=== PATIENT | male | born 1975 | race Caucasian/White ===

== ENCOUNTER 2016-03-16 10:43 | Inpatient (IN) | payer MEDICAID, OTHER ==
[~2016-03-16] VITALS: Ht 188 cm; Wt 98.7 kg
[~2016-03-16 10:43] MED LIST: BENZ2TAB10 PO; HALO10 PO; VITAD1000 PO
[2016-03-16 11:19] LABS: BASOPHILS % (AUTO) 0.3 % (0.0-2.0); EOSINOPHILS % (AUTO) 1.3 % (1.0-6.0); HEMATOCRIT 43.5 % (41-53); HEMOGLOBIN 14.4 g/dL (13.5-17.5); MEAN CORPUSCULAR HEMOGLOBIN 31.4 pg (26.0-34.0); MEAN CORPUSCULAR HGB CONC 33.1 G/dL (31.0-37.0); MEAN CORPUSCULAR VOLUME 95 fL (80-100); MONOCYTES # (AUTO) 0.5 K/uL (0.1-1.0); MONOCYTES % (AUTO) 7.6 % (2.0-9.0); NEUTROPHILS # (AUTO) 5.1 K/uL (1.8-7.7); NEUTROPHILS % (AUTO) 75.8 % (40.0-70.0); PLATELET COUNT (AUTO) 292 K/uL (150-450); RED BLOOD CELL COUNT(AUTO) 4.59 MIL/uL (4.50-5.90); RED CELL DISTRIBUTION WIDTH 15.5 % (11.5-14.5); WHITE BLOOD COUNT (AUTO) 6.7 K/uL (4.5-11.0)
[2016-03-16 11:28] LABS: ANION GAP 13 mmol/L (8-16); CARBON DIOXIDE 23 mmol/L (22-29); CHLORIDE 102 mmol/L (98-107); CREATININE 1.07 mg/dL (0.60-1.30); GLOMERULAR FILTR. RATE CALC > 60 mL/min (>60); POTASSIUM 3.6 mmol/L (3.5-5.1); SODIUM SERUM 138 mmol/L (136-145); UREA NITROGEN, BLOOD 13 mg/dL (7-18)
[2016-03-16 11:32] LABS: ALANINE AMINOTRANSFERASE 82 U/L (12-78); ALBUMIN 3.6 g/dL (3.4-5.0); ASPARTATE AMINOTRANSFERASE 89 U/L (15-37); BILIRUBIN,TOTAL 0.4 mg/dL (0.1-1.0); TOTAL PROTEIN, SERUM 6.8 g/dL (6.4-8.2)
[2016-03-16] MEDS: LORazepam 1 MG TABLET PO ONE ×2 (12:05→12:14)
[2016-03-16] MEDS: DiphenhydrAMINE HCL 25 MG/10 ML ELIXIR UDCUP PO ONE ×2 (12:05→12:14)
[2016-03-16] MEDS: HALOPERIDOL 5 MG TABLET PO ONE ×2 (12:05→12:14)
[2016-03-16 14:40] VITALS: BP 122/79
[2016-03-16] MEDS ORDERED: INFLUENZA VIRUS VACCINE QVS 2016-17 (3YR+)/PF 60 MCG/0.5 ML SYRINGE IM ONE (15:15)
[2016-03-16 16:00] VITALS: BP 127/72
[2016-03-16] MEDS: LORazepam 2 MG TABLET PO PRN (20:04)
[2016-03-16] MEDS: BENZTROPINE MESYLATE 2 MG TABLET PO SCH (20:04)
[2016-03-16] MEDS: HALOPERIDOL 10 MG TABLET PO SCH (20:04)
[2016-03-17 06:39] VITALS: BP 121/85
[2016-03-17 08:04] VITALS: BP 150/74
[2016-03-17] MEDS ORDERED: LOPERAMIDE HCL 2 MG CAPSULE PO PRN (11:00)
[2016-03-17] MEDS ORDERED: CloNIDine HCL 0.1 MG TABLET PO PRN (11:00)
[2016-03-17] MEDS ORDERED: MAG HYDROX/AL HYDROX/SIMETH ES 30 ML SUSPENSION UDCUP PO PRN (11:00)
[2016-03-17] MEDS ORDERED: ALBUTEROL SULFATE HFA 90 MCG/PUFF 8 GM INHALER IH PRN (11:00)
[2016-03-17] MEDS ORDERED: PETROLATUM,WHITE 71 GM JELLY TP PRN (11:00)
[2016-03-17] MEDS ORDERED: MAGNESIUM HYDROXIDE SUSPENSION 30 ML UDCUP PO PRN (11:00)
[2016-03-17] MEDS ORDERED: ONDANSETRON HCL 4 MG TABLET PO PRN (11:00)
[2016-03-17] MEDS ORDERED: BENZOCAINE/MENTHOL LOZENGE MM PRN (11:00)
[2016-03-17] MEDS ORDERED: ACETAMINOPHEN 325 MG TABLET PO PRN (11:00)
[2016-03-17] MEDS ORDERED: BACITRACIN 28.4 GM OINTMENT TP PRN (11:00)
[2016-03-17 16:00] VITALS: BP 106/60
[2016-03-17] MEDS: BENZTROPINE MESYLATE 2 MG TABLET PO SCH (20:15)
[2016-03-17] MEDS: HALOPERIDOL 10 MG TABLET PO SCH (20:15)
[2016-03-18 08:30] VITALS: BP 121/67
[2016-03-18] MEDS: CHOLECALCIFEROL (VIT D3) 1,000 UNITS TABLET PO SCH (09:31)
[2016-03-18 16:10] VITALS: BP 117/72
[2016-03-18] MEDS: HALOPERIDOL 10 MG TABLET PO SCH (20:08)
[2016-03-18] MEDS: BENZTROPINE MESYLATE 2 MG TABLET PO SCH (20:08)
[2016-03-19 05:38] VITALS: BP 117/71
[2016-03-19 08:04] VITALS: BP 141/82
[2016-03-19] MEDS: LORazepam 2 MG TABLET PO PRN (09:25)
[2016-03-19] MEDS: CHOLECALCIFEROL (VIT D3) 1,000 UNITS TABLET PO SCH (09:25)
[2016-03-19 16:18] VITALS: BP 121/71
[2016-03-19] MEDS: BENZTROPINE MESYLATE 2 MG TABLET PO SCH (20:06)
[2016-03-19] MEDS: HALOPERIDOL 10 MG TABLET PO SCH (20:06)
[2016-03-20 06:31] VITALS: BP 118/72
[2016-03-20 08:03] VITALS: BP 136/57
[2016-03-20] MEDS: CHOLECALCIFEROL (VIT D3) 1,000 UNITS TABLET PO SCH (09:26)
[2016-03-20 16:13] VITALS: BP 124/75
[2016-03-20] MEDS: BENZTROPINE MESYLATE 2 MG TABLET PO SCH (20:14)
[2016-03-20] MEDS: HALOPERIDOL 10 MG TABLET PO SCH (20:14)
[2016-03-20] MEDS: LORazepam 2 MG TABLET PO PRN (21:01)
[2016-03-21 08:17] VITALS: BP 111/68
[2016-03-21] MEDS: CHOLECALCIFEROL (VIT D3) 1,000 UNITS TABLET PO SCH (08:45)
[2016-03-21] MEDS: LORazepam 2 MG TABLET PO PRN (08:45)
[2016-03-21 16:06] VITALS: BP 115/77
[2016-03-21] MEDS: HALOPERIDOL 10 MG TABLET PO SCH (20:24)
[2016-03-21] MEDS: BENZTROPINE MESYLATE 2 MG TABLET PO SCH (20:24)
[2016-03-22 00:27] VITALS: BP 125/66
[2016-03-22] MEDS: CHOLECALCIFEROL (VIT D3) 1,000 UNITS TABLET PO SCH (08:06)
[2016-03-22 08:18] VITALS: BP 107/63
[2016-03-22] MEDS: LORazepam 2 MG TABLET PO PRN ×2 (08:27→16:18)
[2016-03-22 16:10] VITALS: BP 129/75
[2016-03-22] MEDS: HALOPERIDOL 10 MG TABLET PO SCH (20:03)
[2016-03-22] MEDS: BENZTROPINE MESYLATE 2 MG TABLET PO SCH (20:03)
[2016-03-23 00:57] VITALS: BP 101/62
[2016-03-23 08:04] VITALS: BP 113/75
[2016-03-23] MEDS: CHOLECALCIFEROL (VIT D3) 1,000 UNITS TABLET PO SCH (08:47)
[2016-03-23] MEDS: LORazepam 2 MG TABLET PO PRN ×2 (08:47→16:02)
[2016-03-23 16:12] VITALS: BP 114/71
[2016-03-23] MEDS: BENZTROPINE MESYLATE 2 MG TABLET PO SCH (19:56)
[2016-03-23] MEDS: HALOPERIDOL 10 MG TABLET PO SCH (19:56)
[2016-03-24 06:13] VITALS: BP 105/63
[2016-03-24 08:05] VITALS: BP 108/60
[2016-03-24] MEDS: CHOLECALCIFEROL (VIT D3) 1,000 UNITS TABLET PO SCH (09:40)
[2016-03-24 16:02] VITALS: BP 117/67
[2016-03-24] MEDS: BENZTROPINE MESYLATE 2 MG TABLET PO SCH (20:32)
[2016-03-24] MEDS: HALOPERIDOL 10 MG TABLET PO SCH (20:32)
[2016-03-25 06:06] VITALS: BP 126/71
[2016-03-25 08:05] VITALS: BP 120/68
[2016-03-25] MEDS: CHOLECALCIFEROL (VIT D3) 1,000 UNITS TABLET PO SCH (08:41)
[2016-03-25 16:03] VITALS: BP 132/80
[2016-03-25] MEDS: BENZTROPINE MESYLATE 2 MG TABLET PO SCH (20:02)
[2016-03-25] MEDS: HALOPERIDOL 10 MG TABLET PO SCH (20:02)
[2016-03-26 08:03] VITALS: BP 134/78
[2016-03-26] MEDS: CHOLECALCIFEROL (VIT D3) 1,000 UNITS TABLET PO SCH (08:46)
[2016-03-26 16:03] VITALS: BP 118/70
[2016-03-26] MEDS: LORazepam 2 MG TABLET PO PRN (16:27)
[2016-03-26] MEDS: HALOPERIDOL 10 MG TABLET PO SCH (20:16)
[2016-03-26] MEDS: BENZTROPINE MESYLATE 2 MG TABLET PO SCH (20:17)
[2016-03-27 08:04] VITALS: BP 128/60
[2016-03-27 08:38] LABS: HEMOGLOBIN A1C 5.4 % (4.5-6.2)
[2016-03-27 08:56] LABS: CHOL/HDL RATIO 3.5 (4.2-7.3); THYROID STIMULATING HORMONE 1.61 uIU/mL (0.36-3.74)
[2016-03-27] MEDS: CHOLECALCIFEROL (VIT D3) 1,000 UNITS TABLET PO SCH (09:53)
[2016-03-27 16:00] VITALS: BP 113/68
[2016-03-27] MEDS: HALOPERIDOL 10 MG TABLET PO SCH (20:31)
[2016-03-27] MEDS: BENZTROPINE MESYLATE 2 MG TABLET PO SCH (20:31)
[2016-03-28 08:23] VITALS: BP 107/68
[2016-03-28 08:36] LABS: HEPATITIS Bs ANTIGEN SCREEN P Negative (Negative); HEPATITIS C AB SCREEN <0.1 s/co ratio (0.0-0.9)
[2016-03-28] MEDS: CHOLECALCIFEROL (VIT D3) 1,000 UNITS TABLET PO SCH (09:53)
[2016-03-28 16:07] VITALS: BP 112/65
[2016-03-28] MEDS: LORazepam 2 MG TABLET PO PRN (16:38)
[2016-03-28] MEDS: HALOPERIDOL 10 MG TABLET PO SCH (20:16)
[2016-03-28] MEDS: BENZTROPINE MESYLATE 2 MG TABLET PO SCH (20:17)
[2016-03-29 07:03] VITALS: BP 122/63
[2016-03-29] MEDS: CHOLECALCIFEROL (VIT D3) 1,000 UNITS TABLET PO SCH (09:53)
[2016-03-29] MEDS: LORazepam 2 MG TABLET PO PRN (15:54)
[2016-03-29 16:04] VITALS: BP 120/71
[2016-03-29] MEDS: BENZTROPINE MESYLATE 2 MG TABLET PO SCH (20:09)
[2016-03-29] MEDS: HALOPERIDOL 10 MG TABLET PO SCH (20:09)
[2016-03-30 08:05] VITALS: BP 112/69
[2016-03-30] MEDS: CHOLECALCIFEROL (VIT D3) 1,000 UNITS TABLET PO SCH (09:52)
[2016-03-30] MEDS: LORazepam 2 MG TABLET PO PRN (16:00)
[2016-03-30 16:20] VITALS: BP 113/84
[2016-03-30] MEDS: HALOPERIDOL 10 MG TABLET PO SCH (20:01)
[2016-03-30] MEDS: BENZTROPINE MESYLATE 2 MG TABLET PO SCH (20:01)
[2016-03-31] MEDS: CHOLECALCIFEROL (VIT D3) 1,000 UNITS TABLET PO SCH (08:38)
[2016-03-31] MEDS: LORazepam 2 MG TABLET PO PRN ×2 (15:01→20:03)
[2016-03-31 16:00] VITALS: BP 127/68
[2016-03-31] MEDS: HALOPERIDOL 10 MG TABLET PO SCH (20:02)
[2016-03-31] MEDS: BENZTROPINE MESYLATE 2 MG TABLET PO SCH (20:02)
[2016-04-01] MEDS: CHOLECALCIFEROL (VIT D3) 1,000 UNITS TABLET PO SCH (09:23)
[2016-04-01 16:14] VITALS: BP 114/83
[2016-04-01] MEDS: LORazepam 2 MG TABLET PO PRN (17:15)
[2016-04-01 17:30] VITALS: BP 125/76
[2016-04-01] MEDS: HALOPERIDOL 10 MG TABLET PO SCH (20:11)
[2016-04-01] MEDS: BENZTROPINE MESYLATE 2 MG TABLET PO SCH (20:11)
[2016-04-02 07:04] VITALS: BP 105/63
[2016-04-02] MEDS: CHOLECALCIFEROL (VIT D3) 1,000 UNITS TABLET PO SCH (09:40)
[2016-04-02] MEDS: LORazepam 2 MG TABLET PO PRN (14:18)
[2016-04-02 16:03] VITALS: BP 115/68
[2016-04-02] MEDS: BENZTROPINE MESYLATE 2 MG TABLET PO SCH (21:08)
[2016-04-02] MEDS: HALOPERIDOL 10 MG TABLET PO SCH (21:08)
[2016-04-03] MEDS: CHOLECALCIFEROL (VIT D3) 1,000 UNITS TABLET PO SCH (09:08)
[2016-04-03] MEDS: LORazepam 2 MG TABLET PO PRN ×2 (11:00→17:30)
[2016-04-03 16:00] VITALS: BP 115/73
[2016-04-03] MEDS ORDERED: TUBERCULIN, PURIFIED PROTEIN DERIVATIVE 5 TU/0.1 ML SYG ID ONE (16:00)
[2016-04-03] MEDS: BENZTROPINE MESYLATE 2 MG TABLET PO SCH (20:33)
[2016-04-03] MEDS: HALOPERIDOL 10 MG TABLET PO SCH (20:33)
[2016-04-04] MEDS: CHOLECALCIFEROL (VIT D3) 1,000 UNITS TABLET PO SCH (09:23)
[2016-04-04 09:57] VITALS: BP 114/62
[2016-04-04] MEDS: LORazepam 2 MG TABLET PO PRN ×2 (13:03→17:38)
[2016-04-04 17:37] VITALS: BP 115/80
[2016-04-04] MEDS: HALOPERIDOL 10 MG TABLET PO SCH (20:23)
[2016-04-04] MEDS: BENZTROPINE MESYLATE 2 MG TABLET PO SCH (20:23)
[2016-04-05 06:47] VITALS: BP 118/63
[2016-04-05] MEDS: CHOLECALCIFEROL (VIT D3) 1,000 UNITS TABLET PO SCH (08:35)
[2016-04-05 08:36] VITALS: BP 114/68
[2016-04-05] MEDS: LORazepam 2 MG TABLET PO PRN ×2 (12:57→17:19)
[2016-04-05 16:00] VITALS: BP 114/70
[2016-04-05] MEDS: BENZTROPINE MESYLATE 2 MG TABLET PO SCH (20:24)
[2016-04-05] MEDS: HALOPERIDOL 10 MG TABLET PO SCH (20:24)
[2016-04-06 06:53] VITALS: BP 108/63
[2016-04-06] MEDS: CHOLECALCIFEROL (VIT D3) 1,000 UNITS TABLET PO SCH (09:40)
[2016-04-06 10:00] VITALS: BP 130/76
[2016-04-06] MEDS: LORazepam 2 MG TABLET PO PRN ×2 (10:18→19:17)
[2016-04-06 16:26] VITALS: BP 117/67
[2016-04-06] MEDS: HALOPERIDOL 10 MG TABLET PO SCH (21:36)
[2016-04-06] MEDS: BENZTROPINE MESYLATE 2 MG TABLET PO SCH (21:36)
[2016-04-07 06:54] VITALS: BP 105/66
[2016-04-07 08:05] VITALS: BP 113/50
[2016-04-07] MEDS: CHOLECALCIFEROL (VIT D3) 1,000 UNITS TABLET PO SCH (09:35)
[2016-04-07] MEDS: LORazepam 2 MG TABLET PO PRN ×2 (10:21→16:18)
[2016-04-07 16:00] VITALS: BP 113/67
[2016-04-07] MEDS: BENZTROPINE MESYLATE 2 MG TABLET PO SCH (20:22)
[2016-04-07] MEDS: HALOPERIDOL 10 MG TABLET PO SCH (20:22)
[2016-04-08 06:30] VITALS: BP 118/70
[2016-04-08 08:05] VITALS: BP 120/76
[2016-04-08] MEDS: CHOLECALCIFEROL (VIT D3) 1,000 UNITS TABLET PO SCH (09:04)
[2016-04-08] MEDS: LORazepam 2 MG TABLET PO PRN ×2 (10:13→20:24)
[2016-04-08 16:04] VITALS: BP 121/68
[2016-04-08] MEDS: HALOPERIDOL 10 MG TABLET PO SCH (20:23)
[2016-04-08] MEDS: BENZTROPINE MESYLATE 2 MG TABLET PO SCH (20:23)
[2016-04-09 04:45] VITALS: BP 116/64
[2016-04-09 08:05] VITALS: BP 107/60
[2016-04-09] MEDS: CHOLECALCIFEROL (VIT D3) 1,000 UNITS TABLET PO SCH (08:50)
[2016-04-09] MEDS: LORazepam 2 MG TABLET PO PRN ×2 (08:50→13:58)
[2016-04-09 16:00] VITALS: BP 118/67
[2016-04-09] MEDS: BENZTROPINE MESYLATE 2 MG TABLET PO SCH (20:18)
[2016-04-09] MEDS: HALOPERIDOL 10 MG TABLET PO SCH (20:18)
[2016-04-10 06:52] VITALS: BP 106/74
[2016-04-10 08:16] VITALS: BP 112/62
[2016-04-10] MEDS: CHOLECALCIFEROL (VIT D3) 1,000 UNITS TABLET PO SCH (09:29)
[2016-04-10] MEDS: LORazepam 2 MG TABLET PO PRN ×2 (09:29→16:26)
[2016-04-10] MEDS: IBUPROFEN 600 MG TABLET PO PRN (10:31)
[2016-04-10] MEDS ORDERED: TUBERCULIN, PURIFIED PROTEIN DERIVATIVE 5 TU/0.1 ML SYG ID ONE (12:00)
[2016-04-10 16:04] VITALS: BP 112/67
[2016-04-10] MEDS: BENZTROPINE MESYLATE 2 MG TABLET PO SCH (20:19)
[2016-04-10] MEDS: HALOPERIDOL 10 MG TABLET PO SCH (20:19)
[2016-04-10] MEDS: ZOLPIDEM TARTRATE 10 MG TABLET PO PRN (21:28)
[2016-04-11 06:44] VITALS: BP 109/67
[2016-04-11] MEDS: CHOLECALCIFEROL (VIT D3) 1,000 UNITS TABLET PO SCH (09:59)
[2016-04-11] MEDS: LORazepam 2 MG TABLET PO PRN ×3 (09:59→20:33)
[2016-04-11 16:00] VITALS: BP 117/68
[2016-04-11] MEDS: HALOPERIDOL 10 MG TABLET PO SCH (20:33)
[2016-04-11] MEDS: ZOLPIDEM TARTRATE 10 MG TABLET PO PRN (20:33)
[2016-04-11] MEDS: BENZTROPINE MESYLATE 2 MG TABLET PO SCH (20:33)
[2016-04-12 06:53] VITALS: BP 110/62
[2016-04-12] MEDS: CHOLECALCIFEROL (VIT D3) 1,000 UNITS TABLET PO SCH (08:17)
[2016-04-12] MEDS: LORazepam 2 MG TABLET PO PRN ×2 (09:46→14:20)
[2016-04-12 16:00] VITALS: BP 118/66
[2016-04-12] MEDS: HALOPERIDOL 10 MG TABLET PO SCH (20:24)
[2016-04-12] MEDS: ZOLPIDEM TARTRATE 10 MG TABLET PO PRN (20:24)
[2016-04-12] MEDS: BENZTROPINE MESYLATE 2 MG TABLET PO SCH (20:24)
[2016-04-13 06:15] VITALS: BP 115/72
[2016-04-13] MEDS: CHOLECALCIFEROL (VIT D3) 1,000 UNITS TABLET PO SCH (08:25)
[2016-04-13] MEDS: LORazepam 2 MG TABLET PO PRN ×2 (08:25→13:51)
[2016-04-13 08:43] VITALS: BP 117/60
[2016-04-13] MEDS: BENZTROPINE MESYLATE 2 MG TABLET PO SCH (21:00)
[2016-04-13] MEDS: HALOPERIDOL 10 MG TABLET PO SCH (21:00)
[2016-04-14] MEDS: CHOLECALCIFEROL (VIT D3) 1,000 UNITS TABLET PO SCH (09:00)
[2016-04-14] MEDS: BENZTROPINE MESYLATE 2 MG TABLET PO SCH (21:00)
[2016-04-14] MEDS: HALOPERIDOL 10 MG TABLET PO SCH (21:00)
[2016-04-15 07:28] VITALS: BP 101/65
[2016-04-15 08:07] VITALS: BP 111/65
[2016-04-15] MEDS: CHOLECALCIFEROL (VIT D3) 1,000 UNITS TABLET PO SCH (09:54)
[2016-04-15] MEDS: LORazepam 2 MG TABLET PO PRN ×2 (09:54→14:36)
[2016-04-15 16:00] VITALS: BP 114/60
[2016-04-15] MEDS: BENZTROPINE MESYLATE 2 MG TABLET PO SCH (20:04)
[2016-04-15] MEDS: HALOPERIDOL 10 MG TABLET PO SCH (20:04)
[2016-04-15] MEDS: ZOLPIDEM TARTRATE 10 MG TABLET PO PRN (21:00)
[2016-04-16 08:59] VITALS: BP 117/60
[2016-04-16] MEDS: CHOLECALCIFEROL (VIT D3) 1,000 UNITS TABLET PO SCH (09:24)
[2016-04-16] MEDS: LORazepam 2 MG TABLET PO PRN ×2 (09:24→14:25)
[2016-04-16 16:05] VITALS: BP 111/63
[2016-04-16] MEDS: BENZTROPINE MESYLATE 2 MG TABLET PO SCH (20:31)
[2016-04-16] MEDS: HALOPERIDOL 10 MG TABLET PO SCH (20:31)
[2016-04-16] MEDS: ZOLPIDEM TARTRATE 10 MG TABLET PO PRN (21:53)
[2016-04-17 05:59] VITALS: BP 101/58
[2016-04-17] MEDS: LORazepam 2 MG TABLET PO PRN ×2 (07:02→13:11)
[2016-04-17] MEDS: CHOLECALCIFEROL (VIT D3) 1,000 UNITS TABLET PO SCH (08:23)
[2016-04-17 08:29] VITALS: BP 105/60
[2016-04-17 16:10] VITALS: BP 113/63
[2016-04-17] MEDS: HALOPERIDOL 10 MG TABLET PO SCH (20:06)
[2016-04-17] MEDS: BENZTROPINE MESYLATE 2 MG TABLET PO SCH (20:06)
[2016-04-17] MEDS: ZOLPIDEM TARTRATE 10 MG TABLET PO PRN (20:09)
[2016-04-18 06:18] VITALS: BP 105/60
[2016-04-18] MEDS: LORazepam 2 MG TABLET PO PRN ×2 (08:01→15:38)
[2016-04-18] MEDS: CHOLECALCIFEROL (VIT D3) 1,000 UNITS TABLET PO SCH (08:01)
[2016-04-18 08:33] VITALS: BP 109/67
[2016-04-18 16:04] VITALS: BP 122/66
[2016-04-18] MEDS: HALOPERIDOL 10 MG TABLET PO SCH (20:19)
[2016-04-18] MEDS: BENZTROPINE MESYLATE 2 MG TABLET PO SCH (20:19)
[2016-04-18] MEDS: ZOLPIDEM TARTRATE 10 MG TABLET PO PRN (20:19)
[2016-04-19 00:17] VITALS: BP 109/62
[2016-04-19 08:26] VITALS: BP 113/54
[2016-04-19] MEDS: CHOLECALCIFEROL (VIT D3) 1,000 UNITS TABLET PO SCH (09:12)
[2016-04-19] MEDS: LORazepam 2 MG TABLET PO PRN ×2 (09:12→16:53)
[2016-04-19 14:25] VITALS: BP 119/61
[2016-04-19 16:24] VITALS: BP 110/74
[2016-04-19] MEDS: BENZTROPINE MESYLATE 2 MG TABLET PO SCH (20:54)
[2016-04-19] MEDS: HALOPERIDOL 10 MG TABLET PO SCH (20:54)
[2016-04-20 06:25] VITALS: BP 114/56
[2016-04-20 08:16] VITALS: BP 122/60
[2016-04-20] MEDS: CHOLECALCIFEROL (VIT D3) 1,000 UNITS TABLET PO SCH (08:56)
[2016-04-20] MEDS: LORazepam 2 MG TABLET PO PRN ×2 (08:56→14:04)
[2016-04-20 16:11] VITALS: BP 111/54
[2016-04-20] MEDS: HALOPERIDOL 10 MG TABLET PO SCH (20:30)
[2016-04-20] MEDS: BENZTROPINE MESYLATE 2 MG TABLET PO SCH (20:30)
[2016-04-20] MEDS: ZOLPIDEM TARTRATE 10 MG TABLET PO PRN (20:48)
[2016-04-21 00:22] VITALS: BP 122/66
[2016-04-21] MEDS: LORazepam 2 MG TABLET PO PRN ×2 (05:44→10:26)
[2016-04-21 08:04] VITALS: BP 119/67
[2016-04-21] MEDS: CHOLECALCIFEROL (VIT D3) 1,000 UNITS TABLET PO SCH (09:27)
[2016-04-21 16:06] VITALS: BP 128/80
[2016-04-21] MEDS: HALOPERIDOL 10 MG TABLET PO SCH (20:51)
[2016-04-21] MEDS: BENZTROPINE MESYLATE 2 MG TABLET PO SCH (20:51)
[2016-04-22] MEDS: ZOLPIDEM TARTRATE 10 MG TABLET PO PRN (00:04)
[2016-04-22 01:49] VITALS: BP 115/67
[2016-04-22 08:49] VITALS: BP 108/75
[2016-04-22] MEDS: CHOLECALCIFEROL (VIT D3) 1,000 UNITS TABLET PO SCH (09:03)
[2016-04-22] MEDS: LORazepam 2 MG TABLET PO PRN ×2 (09:35→14:14)
[2016-04-22 16:06] VITALS: BP 117/66
[2016-04-22] MEDS: HALOPERIDOL 10 MG TABLET PO SCH (20:17)
[2016-04-22] MEDS: BENZTROPINE MESYLATE 2 MG TABLET PO SCH (20:17)
[2016-04-23 06:54] VITALS: BP 103/60
[2016-04-23] MEDS: LORazepam 2 MG TABLET PO PRN ×2 (07:27→14:07)
[2016-04-23] MEDS: CHOLECALCIFEROL (VIT D3) 1,000 UNITS TABLET PO SCH (08:29)
[2016-04-23] MEDS: HALOPERIDOL 5 MG TABLET PO PRN ×2 (08:40→14:07)
[2016-04-23 08:53] VITALS: BP 108/65
[2016-04-23] MEDS ORDERED: HALOPERIDOL LACTATE 5 MG/ML VIAL IM ONE (10:15)
[2016-04-23] MEDS ORDERED: DiphenhydrAMINE HCL 50 MG/ML VIAL IM ONE (10:15)
[2016-04-23] MEDS ORDERED: LORazepam 2 MG/ML VIAL IM ONE (10:15)
[2016-04-23 16:01] VITALS: BP 114/66
[2016-04-23] MEDS: BENZTROPINE MESYLATE 2 MG TABLET PO SCH (20:29)
[2016-04-23] MEDS: HALOPERIDOL 10 MG TABLET PO SCH (20:30)
[2016-04-24 00:40] VITALS: BP 109/64
[2016-04-24] MEDS: CHOLECALCIFEROL (VIT D3) 1,000 UNITS TABLET PO SCH (08:27)
[2016-04-24] MEDS: LORazepam 2 MG TABLET PO PRN ×2 (08:35→13:34)
[2016-04-24 08:39] VITALS: BP 101/62
[2016-04-24 16:10] VITALS: BP 111/60
[2016-04-24] MEDS: BENZTROPINE MESYLATE 2 MG TABLET PO SCH (20:18)
[2016-04-24] MEDS: HALOPERIDOL 10 MG TABLET PO SCH (20:18)
[2016-04-25 08:32] VITALS: BP 108/62
[2016-04-25] MEDS: CHOLECALCIFEROL (VIT D3) 1,000 UNITS TABLET PO SCH (09:19)
[2016-04-25] MEDS: LORazepam 2 MG TABLET PO PRN ×2 (09:36→16:17)
[2016-04-25 16:34] VITALS: BP 103/63
[2016-04-25] MEDS: BENZTROPINE MESYLATE 2 MG TABLET PO SCH (20:13)
[2016-04-25] MEDS: HALOPERIDOL 10 MG TABLET PO SCH (20:13)
[2016-04-26 01:56] VITALS: BP 101/62
[2016-04-26 08:31] VITALS: BP 108/62
[2016-04-26] MEDS: CHOLECALCIFEROL (VIT D3) 1,000 UNITS TABLET PO SCH (08:34)
[2016-04-26] MEDS: LORazepam 2 MG TABLET PO PRN ×2 (08:34→13:06)
[2016-04-26 17:21] VITALS: BP 121/68
[2016-04-26] MEDS: BENZTROPINE MESYLATE 2 MG TABLET PO SCH (20:20)
[2016-04-26] MEDS: HALOPERIDOL 10 MG TABLET PO SCH (20:20)
[2016-04-27 06:10] VITALS: BP 104/60
[2016-04-27 08:21] VITALS: BP 122/60
[2016-04-27] MEDS: LORazepam 2 MG TABLET PO PRN ×2 (08:29→13:57)
[2016-04-27] MEDS: CHOLECALCIFEROL (VIT D3) 1,000 UNITS TABLET PO SCH (08:29)
[2016-04-27 16:10] VITALS: BP 119/67
[2016-04-27] MEDS: BENZTROPINE MESYLATE 2 MG TABLET PO SCH (20:47)
[2016-04-27] MEDS: HALOPERIDOL 10 MG TABLET PO SCH (20:47)
[2016-04-28 07:03] VITALS: BP 112/63
[2016-04-28 08:35] VITALS: BP 126/60
[2016-04-28] MEDS: CHOLECALCIFEROL (VIT D3) 1,000 UNITS TABLET PO SCH (09:01)
[2016-04-28] MEDS: LORazepam 2 MG TABLET PO PRN ×2 (09:36→14:11)
[2016-04-28 09:39] VITALS: BP 118/70
[2016-04-28 14:00] VITALS: BP 112/63
[2016-04-28 16:01] VITALS: BP 111/58
[2016-04-28] MEDS: BENZTROPINE MESYLATE 2 MG TABLET PO SCH (20:47)
[2016-04-28] MEDS: HALOPERIDOL 10 MG TABLET PO SCH (20:47)
[2016-04-29 05:40] VITALS: BP 101/62
[2016-04-29] MEDS: LORazepam 2 MG TABLET PO PRN ×2 (08:42→12:58)
[2016-04-29] MEDS: CHOLECALCIFEROL (VIT D3) 1,000 UNITS TABLET PO SCH (08:42)
[2016-04-29 09:03] VITALS: BP 114/66
[2016-04-29] MEDS: HALOPERIDOL 5 MG TABLET PO PRN (12:58)
[2016-04-29 16:06] VITALS: BP 111/64
[2016-04-29] MEDS: HALOPERIDOL 10 MG TABLET PO SCH (20:13)
[2016-04-29] MEDS: BENZTROPINE MESYLATE 2 MG TABLET PO SCH (20:13)
[2016-04-30 06:31] VITALS: BP 121/71
[2016-04-30 08:20] VITALS: BP 105/60
[2016-04-30] MEDS: CHOLECALCIFEROL (VIT D3) 1,000 UNITS TABLET PO SCH (08:49)
[2016-04-30] MEDS: LORazepam 2 MG TABLET PO PRN (08:57)
[2016-04-30] MEDS: NICOTINE 21 MG/24 HOUR PATCH TD SCH (10:46)
[2016-04-30 16:04] VITALS: BP 121/72
[2016-04-30] MEDS: HALOPERIDOL 10 MG TABLET PO SCH (20:39)
[2016-04-30] MEDS: BENZTROPINE MESYLATE 2 MG TABLET PO SCH (20:39)
[2016-04-30] MEDS: ZOLPIDEM TARTRATE 10 MG TABLET PO PRN (21:26)
[2016-05-01 05:44] VITALS: BP 123/74
[2016-05-01] MEDS: NICOTINE 21 MG/24 HOUR PATCH TD SCH (08:51)
[2016-05-01] MEDS: CHOLECALCIFEROL (VIT D3) 1,000 UNITS TABLET PO SCH (08:51)
[2016-05-01] MEDS: LORazepam 2 MG TABLET PO PRN ×2 (09:09→13:28)
[2016-05-01 09:23] VITALS: BP 125/71
[2016-05-01] MEDS: HALOPERIDOL 5 MG TABLET PO PRN (14:42)
[2016-05-01 18:19] VITALS: BP 107/70
[2016-05-01] MEDS: BENZTROPINE MESYLATE 2 MG TABLET PO SCH (20:27)
[2016-05-01] MEDS: HALOPERIDOL 10 MG TABLET PO SCH (20:28)
[2016-05-02 07:07] VITALS: BP 125/78
[2016-05-02 08:29] VITALS: BP 124/73
[2016-05-02] MEDS: CHOLECALCIFEROL (VIT D3) 1,000 UNITS TABLET PO SCH (09:05)
[2016-05-02] MEDS: LORazepam 2 MG TABLET PO PRN ×2 (09:06→13:26)
[2016-05-02] MEDS: NICOTINE 21 MG/24 HOUR PATCH TD SCH (09:06)
[2016-05-02 16:05] VITALS: BP 111/60
[2016-05-02] MEDS: HALOPERIDOL 10 MG TABLET PO SCH (20:36)
[2016-05-02] MEDS: BENZTROPINE MESYLATE 2 MG TABLET PO SCH (20:36)
[2016-05-03 06:19] VITALS: BP 102/58
[2016-05-03] MEDS: NICOTINE 21 MG/24 HOUR PATCH TD SCH (08:43)
[2016-05-03] MEDS: CHOLECALCIFEROL (VIT D3) 1,000 UNITS TABLET PO SCH (08:44)
[2016-05-03 08:45] VITALS: BP 110/57
[2016-05-03] MEDS: HALOPERIDOL 5 MG TABLET PO PRN ×2 (09:07→17:02)
[2016-05-03] MEDS: LORazepam 2 MG TABLET PO PRN ×2 (09:07→16:57)
[2016-05-03 09:10] VITALS: BP 121/73
[2016-05-03 16:14] VITALS: BP 118/68
[2016-05-03] MEDS: HALOPERIDOL 10 MG TABLET PO SCH (21:09)
[2016-05-03] MEDS: BENZTROPINE MESYLATE 2 MG TABLET PO SCH (21:10)
[2016-05-04 06:44] VITALS: BP 102/60
[2016-05-04 08:16] VITALS: BP 107/59
[2016-05-04] MEDS: NICOTINE 21 MG/24 HOUR PATCH TD SCH (08:28)
[2016-05-04] MEDS: LORazepam 2 MG TABLET PO PRN (08:28)
[2016-05-04] MEDS: CHOLECALCIFEROL (VIT D3) 1,000 UNITS TABLET PO SCH (08:28)
[2016-05-04 16:12] VITALS: BP 110/61
[2016-05-04] MEDS: BENZTROPINE MESYLATE 2 MG TABLET PO SCH (20:26)
[2016-05-04] MEDS: HALOPERIDOL 10 MG TABLET PO SCH (20:26)
[2016-05-04] MEDS: ZOLPIDEM TARTRATE 10 MG TABLET PO PRN (20:59)
[2016-05-05 07:01] VITALS: BP 109/63
[2016-05-05] MEDS: CHOLECALCIFEROL (VIT D3) 1,000 UNITS TABLET PO SCH (08:27)
[2016-05-05] MEDS: NICOTINE 21 MG/24 HOUR PATCH TD SCH (08:27)
[2016-05-05] MEDS: LORazepam 2 MG TABLET PO PRN ×2 (09:39→16:14)
[2016-05-05] MEDS: HALOPERIDOL 5 MG TABLET PO PRN ×2 (09:39→16:14)
[2016-05-05 16:14] VITALS: BP 118/74
[2016-05-05] MEDS: HALOPERIDOL 10 MG TABLET PO SCH (20:35)
[2016-05-05] MEDS: BENZTROPINE MESYLATE 2 MG TABLET PO SCH (20:35)
[2016-05-06 08:48] VITALS: BP 107/62
[2016-05-06] MEDS: CHOLECALCIFEROL (VIT D3) 1,000 UNITS TABLET PO SCH (08:57)
[2016-05-06] MEDS: NICOTINE 21 MG/24 HOUR PATCH TD SCH (08:58)
[2016-05-06] MEDS: LORazepam 2 MG TABLET PO PRN ×2 (09:05→18:12)
[2016-05-06] MEDS: HALOPERIDOL 5 MG TABLET PO PRN ×2 (09:44→17:39)
[2016-05-06 16:43] VITALS: BP 107/62
[2016-05-06] MEDS: HALOPERIDOL 10 MG TABLET PO SCH (20:13)
[2016-05-06] MEDS: BENZTROPINE MESYLATE 2 MG TABLET PO SCH (20:13)
[2016-05-07 06:24] VITALS: BP 133/75
[2016-05-07 08:39] VITALS: BP 110/64
[2016-05-07] MEDS: CHOLECALCIFEROL (VIT D3) 1,000 UNITS TABLET PO SCH (09:54)
[2016-05-07] MEDS: NICOTINE 21 MG/24 HOUR PATCH TD SCH (09:55)
[2016-05-07] MEDS: LORazepam 2 MG TABLET PO PRN ×2 (10:00→15:08)
[2016-05-07] MEDS: HALOPERIDOL 5 MG TABLET PO PRN ×2 (10:02→15:08)
[2016-05-07 16:27] VITALS: BP 115/61
[2016-05-07] MEDS: HALOPERIDOL 10 MG TABLET PO SCH (20:59)
[2016-05-07] MEDS: ZOLPIDEM TARTRATE 10 MG TABLET PO PRN (20:59)
[2016-05-07] MEDS: BENZTROPINE MESYLATE 2 MG TABLET PO SCH (20:59)
[2016-05-08 08:14] VITALS: BP 119/63
[2016-05-08] MEDS: CHOLECALCIFEROL (VIT D3) 1,000 UNITS TABLET PO SCH (10:17)
[2016-05-08] MEDS: NICOTINE 21 MG/24 HOUR PATCH TD SCH (10:18)
[2016-05-08] MEDS: HALOPERIDOL 5 MG TABLET PO PRN ×2 (10:19→17:39)
[2016-05-08] MEDS: LORazepam 2 MG TABLET PO PRN ×3 (10:19→18:49)
[2016-05-08 18:18] VITALS: BP 116/64
[2016-05-08] MEDS: IBUPROFEN 600 MG TABLET PO PRN (18:23)
[2016-05-08] MEDS: BENZTROPINE MESYLATE 2 MG TABLET PO SCH (20:36)
[2016-05-08] MEDS: HALOPERIDOL 10 MG TABLET PO SCH (20:37)
[2016-05-08] MEDS: ZOLPIDEM TARTRATE 10 MG TABLET PO PRN (21:20)
[2016-05-09 00:14] VITALS: BP 105/62
[2016-05-09 08:45] VITALS: BP 103/54
[2016-05-09] MEDS: NICOTINE 21 MG/24 HOUR PATCH TD SCH (09:12)
[2016-05-09] MEDS: CHOLECALCIFEROL (VIT D3) 1,000 UNITS TABLET PO SCH (09:12)
[2016-05-09] MEDS: LORazepam 2 MG TABLET PO PRN ×2 (09:33→13:39)
[2016-05-09 09:37] VITALS: BP 105/73
[2016-05-09 16:15] VITALS: BP 125/72
[2016-05-09] MEDS: BENZTROPINE MESYLATE 2 MG TABLET PO SCH (20:41)
[2016-05-09] MEDS: HALOPERIDOL 10 MG TABLET PO SCH (20:41)
[2016-05-09] MEDS: ZOLPIDEM TARTRATE 10 MG TABLET PO PRN (20:51)
[2016-05-10 00:40] VITALS: BP 104/60
[2016-05-10 08:30] VITALS: BP 107/61
[2016-05-10] MEDS: NICOTINE 21 MG/24 HOUR PATCH TD SCH (09:36)
[2016-05-10] MEDS: CHOLECALCIFEROL (VIT D3) 1,000 UNITS TABLET PO SCH (09:36)
[2016-05-10] MEDS: LORazepam 2 MG TABLET PO PRN ×2 (10:19→15:09)
[2016-05-10 16:38] VITALS: BP 110/82
[2016-05-10] MEDS: HALOPERIDOL 10 MG TABLET PO SCH (20:48)
[2016-05-10] MEDS: BENZTROPINE MESYLATE 2 MG TABLET PO SCH (20:48)
[2016-05-11 00:40] VITALS: BP 104/62
[2016-05-11] MEDS: CHOLECALCIFEROL (VIT D3) 1,000 UNITS TABLET PO SCH (09:01)
[2016-05-11] MEDS: NICOTINE 21 MG/24 HOUR PATCH TD SCH (09:02)
[2016-05-11] MEDS: LORazepam 2 MG TABLET PO PRN ×2 (09:08→20:30)
[2016-05-11 09:49] VITALS: BP 110/60
[2016-05-11 16:00] VITALS: BP 119/74
[2016-05-11] MEDS: HALOPERIDOL 10 MG TABLET PO SCH (20:54)
[2016-05-11] MEDS: BENZTROPINE MESYLATE 2 MG TABLET PO SCH (20:54)
[2016-05-11] MEDS: ZOLPIDEM TARTRATE 10 MG TABLET PO PRN (21:57)
[2016-05-12 08:17] VITALS: BP 118/60
[2016-05-12] MEDS: NICOTINE 21 MG/24 HOUR PATCH TD SCH (09:25)
[2016-05-12] MEDS: CHOLECALCIFEROL (VIT D3) 1,000 UNITS TABLET PO SCH (09:26)
[2016-05-12] MEDS: LORazepam 2 MG TABLET PO PRN (11:30)
[2016-05-12] MEDS: HALOPERIDOL 5 MG TABLET PO PRN (11:30)
[2016-05-12 16:00] VITALS: BP 111/65
[2016-05-12] MEDS: HALOPERIDOL 10 MG TABLET PO SCH (20:45)
[2016-05-12] MEDS: BENZTROPINE MESYLATE 2 MG TABLET PO SCH (20:45)
[2016-05-12] MEDS: ZOLPIDEM TARTRATE 10 MG TABLET PO PRN (22:03)
[2016-05-13 00:17] VITALS: BP 110/67
[2016-05-13 08:17] VITALS: BP 129/63
[2016-05-13] MEDS: CHOLECALCIFEROL (VIT D3) 1,000 UNITS TABLET PO SCH (08:59)
[2016-05-13] MEDS: NICOTINE 21 MG/24 HOUR PATCH TD SCH (08:59)
[2016-05-13] MEDS: HALOPERIDOL 5 MG TABLET PO PRN (08:59)
[2016-05-13] MEDS: LORazepam 2 MG TABLET PO PRN ×2 (09:00→19:12)
[2016-05-13 16:00] VITALS: BP 118/67
[2016-05-13] MEDS: BENZTROPINE MESYLATE 2 MG TABLET PO SCH (20:14)
[2016-05-13] MEDS: HALOPERIDOL 10 MG TABLET PO SCH (20:14)
[2016-05-13] MEDS: ZOLPIDEM TARTRATE 10 MG TABLET PO PRN (21:14)
[2016-05-14 00:37] VITALS: BP 101/63
[2016-05-14 08:43] VITALS: BP 131/68
[2016-05-14] MEDS: NICOTINE 21 MG/24 HOUR PATCH TD SCH (08:54)
[2016-05-14] MEDS: CHOLECALCIFEROL (VIT D3) 1,000 UNITS TABLET PO SCH (08:54)
[2016-05-14] MEDS: LORazepam 2 MG TABLET PO PRN ×2 (09:08→13:59)
[2016-05-14 16:30] VITALS: BP 116/55
[2016-05-14] MEDS: HALOPERIDOL 10 MG TABLET PO SCH (20:43)
[2016-05-14] MEDS: BENZTROPINE MESYLATE 2 MG TABLET PO SCH (20:43)
[2016-05-14] MEDS: ZOLPIDEM TARTRATE 10 MG TABLET PO PRN (21:25)
[2016-05-15 09:08] VITALS: BP 106/61
[2016-05-15] MEDS: NICOTINE 21 MG/24 HOUR PATCH TD SCH (09:14)
[2016-05-15] MEDS: CHOLECALCIFEROL (VIT D3) 1,000 UNITS TABLET PO SCH (09:14)
[2016-05-15] MEDS: HALOPERIDOL 5 MG TABLET PO PRN (09:17)
[2016-05-15] MEDS: LORazepam 2 MG TABLET PO PRN (09:17)
[2016-05-15 16:23] VITALS: BP 112/68
[2016-05-15] MEDS: HALOPERIDOL 10 MG TABLET PO SCH (20:44)
[2016-05-15] MEDS: BENZTROPINE MESYLATE 2 MG TABLET PO SCH (20:45)
[2016-05-15] MEDS: ZOLPIDEM TARTRATE 10 MG TABLET PO PRN (21:51)
[2016-05-16 00:16] VITALS: BP 105/67
[2016-05-16] MEDS: CHOLECALCIFEROL (VIT D3) 1,000 UNITS TABLET PO SCH (09:04)
[2016-05-16] MEDS: NICOTINE 21 MG/24 HOUR PATCH TD SCH (09:04)
[2016-05-16 09:05] VITALS: BP 114/69
[2016-05-16] MEDS: LORazepam 2 MG TABLET PO PRN (09:09)
[2016-05-16 16:18] VITALS: BP 118/64
[2016-05-16] MEDS: BENZTROPINE MESYLATE 2 MG TABLET PO SCH (20:50)
[2016-05-16] MEDS: HALOPERIDOL 10 MG TABLET PO SCH (20:50)
[2016-05-16] MEDS: ZOLPIDEM TARTRATE 10 MG TABLET PO PRN (21:40)
[2016-05-17 01:07] VITALS: BP 107/69
[2016-05-17] MEDS: NICOTINE 21 MG/24 HOUR PATCH TD SCH (08:41)
[2016-05-17] MEDS: CHOLECALCIFEROL (VIT D3) 1,000 UNITS TABLET PO SCH (08:41)
[2016-05-17 08:43] VITALS: BP 109/63
[2016-05-17] MEDS: LORazepam 2 MG TABLET PO PRN ×2 (09:41→14:50)
[2016-05-17 16:14] VITALS: BP 123/68
[2016-05-17] MEDS: HALOPERIDOL 10 MG TABLET PO SCH (20:46)
[2016-05-17] MEDS: ZOLPIDEM TARTRATE 10 MG TABLET PO PRN (20:46)
[2016-05-17] MEDS: BENZTROPINE MESYLATE 2 MG TABLET PO SCH (20:46)
[2016-05-18 07:26] VITALS: BP 109/69
[2016-05-18] MEDS: CHOLECALCIFEROL (VIT D3) 1,000 UNITS TABLET PO SCH (08:48)
[2016-05-18] MEDS: NICOTINE 21 MG/24 HOUR PATCH TD SCH (08:49)
[2016-05-18 09:05] VITALS: BP 101/56
[2016-05-18] MEDS: HALOPERIDOL 5 MG TABLET PO PRN (09:52)
[2016-05-18] MEDS: LORazepam 2 MG TABLET PO PRN ×2 (09:53→14:58)
[2016-05-18 16:37] VITALS: BP 118/69
[2016-05-18] MEDS: HALOPERIDOL 10 MG TABLET PO SCH (20:57)
[2016-05-18] MEDS: BENZTROPINE MESYLATE 2 MG TABLET PO SCH (20:57)
[2016-05-18] MEDS: ZOLPIDEM TARTRATE 10 MG TABLET PO PRN (21:03)
[2016-05-19] MEDS: CHOLECALCIFEROL (VIT D3) 1,000 UNITS TABLET PO SCH (08:29)
[2016-05-19] MEDS: NICOTINE 21 MG/24 HOUR PATCH TD SCH (08:29)
[2016-05-19] MEDS: LORazepam 2 MG TABLET PO PRN ×2 (08:29→14:05)
[2016-05-19 08:39] VITALS: BP 117/73
[2016-05-19 16:31] VITALS: BP 122/81
[2016-05-19] MEDS: BENZTROPINE MESYLATE 2 MG TABLET PO SCH (20:25)
[2016-05-19] MEDS: HALOPERIDOL 10 MG TABLET PO SCH (20:25)
[2016-05-19] MEDS: ZOLPIDEM TARTRATE 10 MG TABLET PO PRN (20:34)
[2016-05-20] MEDS: CHOLECALCIFEROL (VIT D3) 1,000 UNITS TABLET PO SCH (08:36)
[2016-05-20] MEDS: NICOTINE 21 MG/24 HOUR PATCH TD SCH (08:37)
[2016-05-20 09:05] VITALS: BP 100/67
[2016-05-20 09:48] VITALS: BP 128/65
[2016-05-20] MEDS: LORazepam 2 MG TABLET PO PRN ×2 (09:49→16:19)
[2016-05-20 16:00] VITALS: BP 118/79
[2016-05-20] MEDS: BENZTROPINE MESYLATE 2 MG TABLET PO SCH (20:21)
[2016-05-20] MEDS: HALOPERIDOL 10 MG TABLET PO SCH (20:21)
[2016-05-21] MEDS: NICOTINE 21 MG/24 HOUR PATCH TD SCH (08:49)
[2016-05-21] MEDS: CHOLECALCIFEROL (VIT D3) 1,000 UNITS TABLET PO SCH (08:49)
[2016-05-21 08:56] VITALS: BP 109/61
[2016-05-21] MEDS: LORazepam 2 MG TABLET PO PRN ×2 (09:46→17:31)
[2016-05-21 16:42] VITALS: BP 121/68
[2016-05-21] MEDS: BENZTROPINE MESYLATE 2 MG TABLET PO SCH (21:00)
[2016-05-21] MEDS: HALOPERIDOL 10 MG TABLET PO SCH (21:01)
[2016-05-21] MEDS: ZOLPIDEM TARTRATE 10 MG TABLET PO PRN (21:40)
[2016-05-22] MEDS: CHOLECALCIFEROL (VIT D3) 1,000 UNITS TABLET PO SCH (08:33)
[2016-05-22] MEDS: NICOTINE 21 MG/24 HOUR PATCH TD SCH (08:34)
[2016-05-22 09:11] VITALS: BP 115/63
[2016-05-22] MEDS: LORazepam 2 MG TABLET PO PRN (10:20)
[2016-05-22 17:52] VITALS: BP 110/65
[2016-05-22] MEDS: HALOPERIDOL 10 MG TABLET PO SCH (20:22)
[2016-05-22] MEDS: BENZTROPINE MESYLATE 2 MG TABLET PO SCH (20:22)
[2016-05-22] MEDS: ZOLPIDEM TARTRATE 10 MG TABLET PO PRN (21:42)
[2016-05-23 08:34] VITALS: BP 119/71
[2016-05-23] MEDS: NICOTINE 21 MG/24 HOUR PATCH TD SCH (09:27)
[2016-05-23] MEDS: CHOLECALCIFEROL (VIT D3) 1,000 UNITS TABLET PO SCH (09:27)
[2016-05-23] MEDS: LORazepam 2 MG TABLET PO PRN ×2 (09:30→17:04)
[2016-05-23 16:13] VITALS: BP 111/70
[2016-05-23] MEDS: BENZTROPINE MESYLATE 2 MG TABLET PO SCH (20:58)
[2016-05-23] MEDS: HALOPERIDOL 10 MG TABLET PO SCH (20:59)
[2016-05-23] MEDS: ZOLPIDEM TARTRATE 10 MG TABLET PO PRN (21:30)
[2016-05-24 08:49] VITALS: BP 120/64
[2016-05-24] MEDS: NICOTINE 21 MG/24 HOUR PATCH TD SCH (09:10)
[2016-05-24] MEDS: CHOLECALCIFEROL (VIT D3) 1,000 UNITS TABLET PO SCH (09:10)
[2016-05-24] MEDS: LORazepam 2 MG TABLET PO PRN (09:47)
[2016-05-24 16:36] VITALS: BP 110/69
[2016-05-24] MEDS: HALOPERIDOL 10 MG TABLET PO SCH (20:49)
[2016-05-24] MEDS: BENZTROPINE MESYLATE 2 MG TABLET PO SCH (20:50)
[2016-05-24] MEDS: ZOLPIDEM TARTRATE 10 MG TABLET PO PRN (21:07)
[2016-05-25 08:00] VITALS: BP 116/67
[2016-05-25] MEDS: CHOLECALCIFEROL (VIT D3) 1,000 UNITS TABLET PO SCH (09:32)
[2016-05-25] MEDS: NICOTINE 21 MG/24 HOUR PATCH TD SCH (09:33)
[2016-05-25] MEDS: LORazepam 2 MG TABLET PO PRN (10:55)
[2016-05-25] MEDS ORDERED: HALO10 PO (11:00)
[2016-05-25] MEDS ORDERED: VITAD1000 PO (11:00)
[2016-05-25] MEDS ORDERED: BENZ2TAB10 PO (11:00)
== END 2016-05-25 13:30 | disposition home or self-care (01) | DRG 750 ==
LOC: EMS 10:45 → B3A 13:05 → B2S 04-15 21:45
PROVIDERS: ADMIT Psychiatry & Neurology Psychiatry; ATTEND Psychiatry & Neurology Psychiatry
DX: F20.0 Paranoid schizophrenia (principal); E55.9 Vitamin D deficiency, unspecified; I10 Essential (primary) hypertension; F25.9 Schizoaffective disorder, unspecified; R74.0 Nonspecific elevation of levels of transaminase and lactic acid dehydrogenase [LDH]; R73.9 Hyperglycemia, unspecified; K59.00 Constipation, unspecified; F17.210 Nicotine dependence, cigarettes, uncomplicated; Z71.6 Tobacco abuse counseling; Z91.14 Patient's other noncompliance with medication regimen; Z28.21 Immunization not carried out because of patient refusal; Z90.49 Acquired absence of other specified parts of digestive tract; Z91.19 Patient's noncompliance with other medical treatment and regimen
CPT/HCPCS: 80074; 82306; 83036; 84443; 87081; 99285; G0480; J1200; J1630; J2060

== ENCOUNTER 2016-07-19 16:24 | Inpatient (IN) | payer MEDICAID ==
[~2016-07-19] VITALS: Ht 188 cm; Wt 96.4 kg
[2016-07-19] MEDS ORDERED: ZOLPIDEM TARTRATE 10 MG TABLET PO PRN (19:45)
[2016-07-19] MEDS ORDERED: HALOPERIDOL 5 MG TABLET PO PRN (19:45)
[2016-07-19 21:18] VITALS: BP 127/77
[2016-07-20] MEDS ORDERED: MAG HYDROX/AL HYDROX/SIMETH ES 30 ML SUSPENSION UDCUP PO PRN (08:30)
[2016-07-20] MEDS ORDERED: BACITRACIN 28.4 GM OINTMENT TP PRN (08:30)
[2016-07-20] MEDS ORDERED: IBUPROFEN 600 MG TABLET PO PRN (08:30)
[2016-07-20] MEDS ORDERED: LOPERAMIDE HCL 2 MG CAPSULE PO PRN (08:30)
[2016-07-20] MEDS ORDERED: ALBUTEROL SULFATE HFA 90 MCG/PUFF 8 GM INHALER IH PRN (08:30)
[2016-07-20] MEDS ORDERED: ONDANSETRON HCL 4 MG TABLET PO PRN (08:30)
[2016-07-20] MEDS ORDERED: PETROLATUM,WHITE 71 GM JELLY TP PRN (08:30)
[2016-07-20] MEDS ORDERED: MAGNESIUM HYDROXIDE SUSPENSION 30 ML UDCUP PO PRN (08:30)
[2016-07-20] MEDS ORDERED: BENZOCAINE/MENTHOL LOZENGE MM PRN (08:30)
[2016-07-20] MEDS ORDERED: CloNIDine HCL 0.1 MG TABLET PO PRN (08:30)
[2016-07-20] MEDS ORDERED: ACETAMINOPHEN 325 MG TABLET PO PRN (08:30)
[2016-07-20] MEDS: CHOLECALCIFEROL (VIT D3) 1,000 UNITS TABLET PO SCH (08:41)
[2016-07-20] MEDS ORDERED: HALOPERIDOL LACTATE 5 MG/ML VIAL IM ONE (09:00)
[2016-07-20] MEDS ORDERED: DiphenhydrAMINE HCL 50 MG/ML VIAL IM ONE (09:00)
[2016-07-20] MEDS ORDERED: LORazepam 2 MG/ML VIAL IM ONE (09:00)
[2016-07-20 09:30] VITALS: BP 121/86
[2016-07-20] MEDS: BENZTROPINE MESYLATE 2 MG TABLET PO SCH (20:25)
[2016-07-20] MEDS: HALOPERIDOL 10 MG TABLET PO SCH (20:26)
[2016-07-20] MEDS: HALOPERIDOL LACTATE 5 MG/ML VIAL IM PRN (21:21)
[2016-07-21 06:55] VITALS: BP 119/69
[2016-07-21] MEDS: CHOLECALCIFEROL (VIT D3) 1,000 UNITS TABLET PO SCH (09:00)
[2016-07-21 09:16] LABS: BASOPHILS # (AUTO) 0.03 K/uL (0.00-0.20); BASOPHILS % (AUTO) 0.4 % (0.0-2.0); EOSINOPHILS # (AUTO) 0.12 K/uL (0.00-0.70); EOSINOPHILS % (AUTO) 1.39 % (1.0-6.0); HEMATOCRIT 43.5 % (41-53); HEMOGLOBIN 14.2 g/dL (13.5-17.5); LYMPHOCYTES # (AUTO) 2.7 K/uL (1.0-4.8); LYMPHOCYTES % (AUTO) 30.6 % (22.0-44.0); MEAN CORPUSCULAR HEMOGLOBIN 31.4 pg (26.0-34.0); MEAN CORPUSCULAR HGB CONC 32.6 G/dL (31.0-37.0); MEAN CORPUSCULAR VOLUME 96 fL (80-100); MONOCYTES # (AUTO) 0.7 K/uL (0.1-1.0); NEUTROPHILS # (AUTO) 5.3 K/uL (1.8-7.7); NEUTROPHILS % (AUTO) 59.7 % (40.0-70.0); PLATELET COUNT (AUTO) 346 K/uL (150-450); RED BLOOD CELL COUNT(AUTO) 4.51 MIL/uL (4.50-5.90); RED CELL DISTRIBUTION WIDTH 15.9 % (11.5-14.5); WHITE BLOOD COUNT (AUTO) 8.9 K/uL (4.5-11.0)
[2016-07-21 09:42] LABS: ALANINE AMINOTRANSFERASE 121 U/L (12-78); ALBUMIN 3.6 g/dL (3.4-5.0); ANION GAP 8 mmol/L (8-16); ASPARTATE AMINOTRANSFERASE 51 U/L (15-37); BILIRUBIN,TOTAL 0.6 mg/dL (0.1-1.0); CALCIUM, TOTAL 8.9 mg/dL (8.8-10.5); CARBON DIOXIDE 28 mmol/L (22-29); CHLORIDE 105 mmol/L (98-107); CREATININE 0.88 mg/dL (0.60-1.30); GLOMERULAR FILTR. RATE CALC > 60 mL/min (>60); POTASSIUM 4.3 mmol/L (3.5-5.1); SODIUM SERUM 141 mmol/L (136-145); TOTAL PROTEIN, SERUM 6.6 g/dL (6.4-8.2); UREA NITROGEN, BLOOD 11 mg/dL (7-18)
[2016-07-21 16:00] VITALS: BP 132/78
[2016-07-21] MEDS: HALOPERIDOL 10 MG TABLET PO SCH (21:00)
[2016-07-21] MEDS: BENZTROPINE MESYLATE 2 MG TABLET PO SCH (21:00)
[2016-07-21] MEDS: HALOPERIDOL LACTATE 5 MG/ML VIAL IM PRN (21:12)
[2016-07-22] MEDS: CHOLECALCIFEROL (VIT D3) 1,000 UNITS TABLET PO SCH (09:00)
[2016-07-22 16:00] VITALS: BP 121/68
[2016-07-22] MEDS: BENZTROPINE MESYLATE 2 MG TABLET PO SCH (20:22)
[2016-07-22] MEDS: HALOPERIDOL 10 MG TABLET PO SCH ×3 (20:22→21:00)
[2016-07-22] MEDS: HALOPERIDOL LACTATE 5 MG/ML VIAL IM PRN (21:37)
[2016-07-23] MEDS: CHOLECALCIFEROL (VIT D3) 1,000 UNITS TABLET PO SCH ×2 (08:07→09:00)
[2016-07-23 08:17] VITALS: BP 116/80
[2016-07-23] MEDS: BENZTROPINE MESYLATE 2 MG TABLET PO SCH (21:00)
[2016-07-23] MEDS: HALOPERIDOL 10 MG TABLET PO SCH (21:00)
[2016-07-23] MEDS: HALOPERIDOL LACTATE 5 MG/ML VIAL IM PRN (21:15)
[2016-07-24] MEDS: CHOLECALCIFEROL (VIT D3) 1,000 UNITS TABLET PO SCH (09:00)
[2016-07-24] MEDS: BENZTROPINE MESYLATE 2 MG TABLET PO SCH (20:59)
[2016-07-24] MEDS: HALOPERIDOL 10 MG TABLET PO SCH (21:00)
[2016-07-24] MEDS: HALOPERIDOL LACTATE 5 MG/ML VIAL IM PRN (21:11)
[2016-07-25 08:10] VITALS: BP 100/50
[2016-07-25] MEDS: CHOLECALCIFEROL (VIT D3) 1,000 UNITS TABLET PO SCH (08:44)
[2016-07-25] MEDS: BENZTROPINE MESYLATE 2 MG TABLET PO SCH (21:00)
[2016-07-25] MEDS: HALOPERIDOL 10 MG TABLET PO SCH (21:00)
[2016-07-25] MEDS: HALOPERIDOL LACTATE 5 MG/ML VIAL IM PRN (21:04)
[2016-07-26] MEDS: CHOLECALCIFEROL (VIT D3) 1,000 UNITS TABLET PO SCH (09:00)
[2016-07-26] MEDS: BENZTROPINE MESYLATE 2 MG TABLET PO SCH (20:43)
[2016-07-26] MEDS: HALOPERIDOL 10 MG TABLET PO SCH (20:44)
[2016-07-26] MEDS: HALOPERIDOL LACTATE 5 MG/ML VIAL IM PRN (20:44)
[2016-07-27] MEDS: CHOLECALCIFEROL (VIT D3) 1,000 UNITS TABLET PO SCH ×3 (08:34→08:45)
[2016-07-27] MEDS: BENZTROPINE MESYLATE 2 MG TABLET PO SCH (20:39)
[2016-07-27] MEDS: HALOPERIDOL 10 MG TABLET PO SCH (20:39)
[2016-07-27] MEDS: HALOPERIDOL LACTATE 5 MG/ML VIAL IM PRN (20:40)
[2016-07-28 06:22] VITALS: BP 119/61
[2016-07-28] MEDS: CHOLECALCIFEROL (VIT D3) 1,000 UNITS TABLET PO SCH (08:34)
[2016-07-28] MEDS: BENZTROPINE MESYLATE 2 MG TABLET PO SCH (20:34)
[2016-07-28] MEDS: HALOPERIDOL 10 MG TABLET PO SCH (20:34)
[2016-07-28] MEDS: HALOPERIDOL LACTATE 5 MG/ML VIAL IM PRN (20:35)
[2016-07-29] MEDS: CHOLECALCIFEROL (VIT D3) 1,000 UNITS TABLET PO SCH (08:28)
[2016-07-29] MEDS ORDERED: HALOPERIDOL DECANOATE 100 MG/ML VIAL IM ONE (12:30)
[2016-07-29 16:05] VITALS: BP 120/67
[2016-07-29] MEDS: BENZTROPINE MESYLATE 2 MG TABLET PO SCH (19:51)
[2016-07-30] MEDS: CHOLECALCIFEROL (VIT D3) 1,000 UNITS TABLET PO SCH (08:27)
[2016-07-30] MEDS ORDERED: TUBERCULIN, PURIFIED PROTEIN DERIVATIVE 5 TU/0.1 ML SYG ID ONE (17:15)
[2016-07-30] MEDS: BENZTROPINE MESYLATE 2 MG TABLET PO SCH (20:44)
[2016-07-31 01:50] VITALS: BP 131/71
[2016-07-31] MEDS: CHOLECALCIFEROL (VIT D3) 1,000 UNITS TABLET PO SCH (09:00)
[2016-07-31 16:00] VITALS: BP 122/62
[2016-07-31] MEDS: BENZTROPINE MESYLATE 2 MG TABLET PO SCH (20:55)
[2016-08-01] MEDS ORDERED: HALOPERIDOL DECANOATE 50 MG/ML VIAL IM ONE (09:00)
[2016-08-01] MEDS: CHOLECALCIFEROL (VIT D3) 1,000 UNITS TABLET PO SCH (09:00)
[2016-08-01 16:03] VITALS: BP 128/68
[2016-08-01] MEDS: BENZTROPINE MESYLATE 2 MG TABLET PO SCH (20:24)
[2016-08-02] MEDS: CHOLECALCIFEROL (VIT D3) 1,000 UNITS TABLET PO SCH (09:00)
[2016-08-03] MEDS: LORazepam 2 MG TABLET PO PRN (13:21)
[2016-08-03 16:10] VITALS: BP 109/59
[2016-08-03] MEDS: BENZTROPINE MESYLATE 2 MG TABLET PO SCH (20:25)
[2016-08-04 08:22] VITALS: BP 104/68
[2016-08-04] MEDS: LORazepam 2 MG TABLET PO PRN ×2 (11:32→16:12)
[2016-08-04 16:10] VITALS: BP 120/76
[2016-08-04] MEDS: BENZTROPINE MESYLATE 2 MG TABLET PO SCH (20:10)
[2016-08-05 08:27] VITALS: BP 109/64
[2016-08-05] MEDS: LORazepam 2 MG TABLET PO PRN ×3 (09:34→20:41)
[2016-08-05 16:00] VITALS: BP 120/62
[2016-08-05] MEDS: BENZTROPINE MESYLATE 2 MG TABLET PO SCH (20:42)
[2016-08-06 08:31] VITALS: BP 105/67
[2016-08-06] MEDS: LORazepam 2 MG TABLET PO PRN ×2 (10:52→16:22)
[2016-08-06 16:00] VITALS: BP 107/67
[2016-08-06] MEDS: BENZTROPINE MESYLATE 2 MG TABLET PO SCH (21:00)
[2016-08-07 02:21] VITALS: BP 112/65
[2016-08-07] MEDS: LORazepam 2 MG TABLET PO PRN ×2 (08:29→15:56)
[2016-08-07 16:00] VITALS: BP 139/86
[2016-08-07] MEDS: BENZTROPINE MESYLATE 2 MG TABLET PO SCH (20:23)
[2016-08-08] MEDS: LORazepam 2 MG TABLET PO PRN ×2 (09:10→14:34)
[2016-08-08 16:00] VITALS: BP 121/68
[2016-08-08] MEDS: BENZTROPINE MESYLATE 2 MG TABLET PO SCH (20:32)
[2016-08-09] MEDS: LORazepam 2 MG TABLET PO PRN (09:16)
[2016-08-09] MEDS ORDERED: HALOD100I IM (13:26)
[2016-09-01] MEDS ORDERED: HALOPERIDOL DECANOATE 100 MG/ML VIAL IM SCH (09:00)
== END 2016-08-09 15:05 | disposition home or self-care (01) | DRG 750 ==
LOC: B3A 19:40 → EDSTATUS 19:42 → B3A 20:57
PROVIDERS: ADMIT Psychiatry & Neurology Psychiatry; ATTEND Psychiatry & Neurology Psychiatry
DX: F25.9 Schizoaffective disorder, unspecified (principal); E55.9 Vitamin D deficiency, unspecified; Z53.29 Procedure and treatment not carried out because of patient's decision for other reasons; K59.00 Constipation, unspecified; F17.200 Nicotine dependence, unspecified, uncomplicated; Z90.49 Acquired absence of other specified parts of digestive tract; Z56.0 Unemployment, unspecified; Z71.6 Tobacco abuse counseling
CPT/HCPCS: 83036; 84439; 84443; 87081; J1200; J1630; J1631; J2060

== ENCOUNTER 2016-12-12 20:43 | Inpatient (IN) | payer MEDICAID, OTHER ==
[~2016-12-12] VITALS: Ht 190.5 cm; Wt 92.3 kg
[~2016-12-12 20:43] MED LIST changes: +ARIP882S IM; -BENZ2TAB10 PO; -HALO10 PO
[2016-12-12 21:15] LABS: BASOPHILS % (AUTO) 0.4 % (0.0-2.0); EOSINOPHILS % (AUTO) 0.8 % (1.0-6.0); HEMATOCRIT 41.5 % (41-53); LYMPHOCYTES # (AUTO) 1.4 K/uL (1.0-4.8); LYMPHOCYTES % (AUTO) 14.1 % (22.0-44.0); MEAN CORPUSCULAR HEMOGLOBIN 31.3 pg (26.0-34.0); MEAN CORPUSCULAR HGB CONC 33.6 G/dL (31.0-37.0); MEAN CORPUSCULAR VOLUME 93 fL (80-100); MONOCYTES % (AUTO) 10.4 % (2.0-9.0); NEUTROPHILS # (AUTO) 7.4 K/uL (1.8-7.7); NEUTROPHILS % (AUTO) 74.3 % (40.0-70.0); PLATELET COUNT (AUTO) 317 K/uL (150-450); RED BLOOD CELL COUNT(AUTO) 4.46 MIL/uL (4.50-5.90); RED CELL DISTRIBUTION WIDTH 15.6 % (11.5-14.5)
[2016-12-12] MEDS ORDERED: HALOPERIDOL LACTATE 5 MG/ML VIAL IM ONE (21:15)
[2016-12-12] MEDS ORDERED: LORazepam 2 MG/ML VIAL IM ONE (21:15)
[2016-12-12] MEDS ORDERED: DiphenhydrAMINE HCL 50 MG/ML VIAL IM ONE (21:15)
[2016-12-12 21:22] LABS: ANION GAP 13 mmol/L (8-16); CALCIUM, TOTAL 9.2 mg/dL (8.8-10.5); CARBON DIOXIDE 25 mmol/L (22-29); CHLORIDE 106 mmol/L (98-107); CREATININE 0.98 mg/dL (0.60-1.30); GLOMERULAR FILTR. RATE CALC > 60 mL/min (>60); POTASSIUM 3.3 mmol/L (3.5-5.1); SODIUM SERUM 144 mmol/L (136-145); UREA NITROGEN, BLOOD 14 mg/dL (7-18)
[2016-12-12 21:29] LABS: ALANINE AMINOTRANSFERASE 61 U/L (12-78); ALBUMIN 4.2 g/dL (3.4-5.0); ASPARTATE AMINOTRANSFERASE 71 U/L (15-37); BILIRUBIN,TOTAL 0.6 mg/dL (0.1-1.0); TOTAL PROTEIN, SERUM 7.4 g/dL (6.4-8.2)
[2016-12-12] MEDS ORDERED: POTASSIUM CHLORIDE 20 MEQ ER TABLET PO ONE (21:45)
[2016-12-12 23:30] VITALS: BP 128/70
[2016-12-13 08:38] LABS: CHOL/HDL RATIO 4.1 (4.2-7.3)
[2016-12-13 17:30] VITALS: BP 117/72
[2016-12-14 00:27] VITALS: BP 124/81
[2016-12-14] MEDS: ZOLPIDEM TARTRATE 10 MG TABLET PO PRN ×2 (00:31→20:27)
[2016-12-14] MEDS: LORazepam 2 MG TABLET PO PRN ×2 (01:11→11:03)
[2016-12-14] MEDS: HALOPERIDOL 5 MG TABLET PO PRN (01:11)
[2016-12-14 08:12] VITALS: BP 109/56
[2016-12-14] MEDS ORDERED: POTASSIUM CHLORIDE 20 MEQ ER TABLET PO ONE (08:45)
[2016-12-14] MEDS ORDERED: ONDANSETRON HCL 4 MG TABLET PO PRN (08:45)
[2016-12-14] MEDS ORDERED: IBUPROFEN 600 MG TABLET PO PRN (08:45)
[2016-12-14] MEDS ORDERED: ALBUTEROL SULFATE HFA 90 MCG/PUFF 8 GM INHALER IH PRN (08:45)
[2016-12-14] MEDS ORDERED: BACITRACIN 28.4 GM OINTMENT TP PRN (08:45)
[2016-12-14] MEDS ORDERED: LOPERAMIDE HCL 2 MG CAPSULE PO PRN (08:45)
[2016-12-14] MEDS ORDERED: MAGNESIUM HYDROXIDE SUSPENSION 30 ML UDCUP PO PRN (08:45)
[2016-12-14] MEDS ORDERED: CloNIDine HCL 0.1 MG TABLET PO PRN (08:45)
[2016-12-14] MEDS ORDERED: BENZOCAINE/MENTHOL LOZENGE MM PRN (08:45)
[2016-12-14] MEDS ORDERED: MAG HYDROX/AL HYDROX/SIMETH ES 30 ML SUSPENSION UDCUP PO PRN (08:45)
[2016-12-14] MEDS ORDERED: PETROLATUM,WHITE 71 GM JELLY TP PRN (08:45)
[2016-12-14] MEDS ORDERED: ACETAMINOPHEN 325 MG TABLET PO PRN (08:45)
[2016-12-14] MEDS: CHOLECALCIFEROL (VIT D3) 1,000 UNITS TABLET PO SCH (09:19)
[2016-12-14 16:32] VITALS: BP 118/71
[2016-12-15 00:57] VITALS: BP 128/74
[2016-12-15] MEDS: CHOLECALCIFEROL (VIT D3) 1,000 UNITS TABLET PO SCH (08:15)
[2016-12-15] MEDS: LORazepam 2 MG TABLET PO PRN ×2 (08:15→16:15)
[2016-12-15 09:35] VITALS: BP 132/67
[2016-12-15] MEDS: NICOTINE 21 MG/24 HOUR PATCH TD SCH (11:26)
[2016-12-15] MEDS: BENZTROPINE MESYLATE 2 MG TABLET PO SCH (11:26)
[2016-12-15 16:00] VITALS: BP 134/83
[2016-12-15] MEDS ORDERED: ARIPiprazole LAUROXIL ER SUSPENSION 882 MG/3.2 ML SYRINGE IM ONE (16:00)
[2016-12-16 02:36] VITALS: BP 118/90
[2016-12-16] MEDS: ZOLPIDEM TARTRATE 10 MG TABLET PO PRN (02:49)
[2016-12-16 08:00] VITALS: BP 130/79
[2016-12-16] MEDS: NICOTINE 21 MG/24 HOUR PATCH TD SCH (09:12)
[2016-12-16] MEDS: CHOLECALCIFEROL (VIT D3) 1,000 UNITS TABLET PO SCH (09:12)
[2016-12-16] MEDS: LORazepam 2 MG TABLET PO PRN ×2 (09:12→21:01)
[2016-12-16] MEDS: BENZTROPINE MESYLATE 2 MG TABLET PO SCH (09:12)
[2016-12-16 16:00] VITALS: BP 130/76
[2016-12-17 02:27] VITALS: BP 121/90
[2016-12-17 08:16] VITALS: BP 146/84
[2016-12-17] MEDS: CHOLECALCIFEROL (VIT D3) 1,000 UNITS TABLET PO SCH (08:42)
[2016-12-17] MEDS: BENZTROPINE MESYLATE 2 MG TABLET PO SCH (08:43)
[2016-12-17] MEDS: NICOTINE 21 MG/24 HOUR PATCH TD SCH (08:43)
[2016-12-17 16:00] VITALS: BP 120/79
[2016-12-17] MEDS: LORazepam 2 MG TABLET PO PRN (20:33)
[2016-12-17] MEDS: ZOLPIDEM TARTRATE 10 MG TABLET PO PRN (21:37)
[2016-12-18 06:23] VITALS: BP 132/79
[2016-12-18] MEDS: LORazepam 2 MG TABLET PO PRN ×2 (09:57→14:29)
[2016-12-18] MEDS: BENZTROPINE MESYLATE 2 MG TABLET PO SCH (09:57)
[2016-12-18] MEDS: CHOLECALCIFEROL (VIT D3) 1,000 UNITS TABLET PO SCH (09:57)
[2016-12-18 09:58] VITALS: BP 139/78
[2016-12-18] MEDS: NICOTINE 21 MG/24 HOUR PATCH TD SCH (09:58)
[2016-12-18 16:00] VITALS: BP 118/80
[2016-12-19 04:30] VITALS: BP 123/75
[2016-12-19 08:33] VITALS: BP 131/72
[2016-12-19] MEDS: CHOLECALCIFEROL (VIT D3) 1,000 UNITS TABLET PO SCH (08:35)
[2016-12-19] MEDS: NICOTINE 21 MG/24 HOUR PATCH TD SCH (08:38)
[2016-12-19] MEDS: BENZTROPINE MESYLATE 2 MG TABLET PO SCH ×2 (08:42→09:10)
[2016-12-19] MEDS: LORazepam 2 MG TABLET PO PRN ×2 (14:07→23:40)
[2016-12-19 16:00] VITALS: BP 120/67
[2016-12-19] MEDS: ZOLPIDEM TARTRATE 10 MG TABLET PO PRN (20:34)
[2016-12-20] MEDS: HALOPERIDOL 5 MG TABLET PO PRN (00:16)
[2016-12-20 01:00] VITALS: BP 125/78
[2016-12-20 08:00] VITALS: BP 141/77
[2016-12-20] MEDS: CHOLECALCIFEROL (VIT D3) 1,000 UNITS TABLET PO SCH (09:06)
[2016-12-20] MEDS: NICOTINE 21 MG/24 HOUR PATCH TD SCH (09:06)
[2016-12-20] MEDS: LORazepam 2 MG TABLET PO PRN (09:06)
[2016-12-20] MEDS: BENZTROPINE MESYLATE 2 MG TABLET PO SCH (09:06)
[2016-12-20] MEDS ORDERED: ARIPiprazole LAUROXIL ER SUSPENSION 1064 MG/3.9 ML SYRINGE IM ONE (10:00)
[2016-12-20] MEDS ORDERED: BENZ2TAB10 PO (10:52)
[2016-12-20] MEDS ORDERED: ARIP882S IM (10:55)
[2016-12-26] MEDS ORDERED: ARIPiprazole LAUROXIL ER SUSPENSION 882 MG/3.2 ML SYRINGE IM SCH (09:00)
== END 2016-12-20 14:20 | disposition home or self-care (01) | DRG 750 ==
LOC: EMS 20:45 → B3A 12-13 16:21
PROVIDERS: ADMIT Psychiatry & Neurology Child & Adolescent Psychiatry; ATTEND Psychiatry & Neurology Child & Adolescent Psychiatry
DX: F20.0 Paranoid schizophrenia (principal); I10 Essential (primary) hypertension; G47.00 Insomnia, unspecified; K59.00 Constipation, unspecified; E87.6 Hypokalemia; E55.9 Vitamin D deficiency, unspecified; Z90.49 Acquired absence of other specified parts of digestive tract; Z72.0 Tobacco use
CPT/HCPCS: 84132; 87081; 99285; G0480; J1200; J1630; J2060

== ENCOUNTER 2017-04-25 11:37 | Inpatient (IN) | payer MEDICAID, OTHER ==
[~2017-04-25] VITALS: Ht 193 cm; Wt 84.2 kg
[~2017-04-25 11:37] MED LIST changes: +BENZ2TAB10 PO
[2017-04-25] MEDS ORDERED: LORazepam 2 MG/ML VIAL IM ONE (13:30)
[2017-04-25] MEDS ORDERED: DiphenhydrAMINE HCL 50 MG/ML VIAL IM ONE (13:30)
[2017-04-25] MEDS ORDERED: HALOPERIDOL LACTATE 5 MG/ML VIAL IM ONE (13:30)
[2017-04-25 13:45] LABS: BASOPHILS % (AUTO) 0.5 % (0.0-2.0); EOSINOPHILS % (AUTO) 0.9 % (1.0-6.0); HEMATOCRIT 38.8 % (41-53); LYMPHOCYTES # (AUTO) 1.5 K/uL (1.0-4.8); LYMPHOCYTES % (AUTO) 16.1 % (22.0-44.0); MEAN CORPUSCULAR HEMOGLOBIN 30.6 pg (26.0-34.0); MEAN CORPUSCULAR HGB CONC 33.6 G/dL (31.0-37.0); MEAN CORPUSCULAR VOLUME 91 fL (80-100); MONOCYTES # (AUTO) 0.8 K/uL (0.1-1.0); MONOCYTES % (AUTO) 8.7 % (2.0-9.0); NEUTROPHILS # (AUTO) 7.1 K/uL (1.8-7.7); NEUTROPHILS % (AUTO) 73.8 % (40.0-70.0); PLATELET COUNT (AUTO) 286 K/uL (150-450); RED BLOOD CELL COUNT(AUTO) 4.25 MIL/uL (4.50-5.90)
[2017-04-25 13:50] LABS: ANION GAP 9 mmol/L (8-16); CALCIUM, TOTAL 8.6 mg/dL (8.8-10.5); CARBON DIOXIDE 27 mmol/L (22-29); CHLORIDE 106 mmol/L (98-107); CREATININE 0.82 mg/dL (0.60-1.30); GLOMERULAR FILTR. RATE CALC > 60 mL/min (>60); GLUCOSE,RANDOM 117 mg/dL (70-110); POTASSIUM 3.6 mmol/L (3.5-5.1); SODIUM SERUM 142 mmol/L (136-145); UREA NITROGEN, BLOOD 16 mg/dL (7-18)
[2017-04-25 13:55] LABS: ALANINE AMINOTRANSFERASE 54 U/L (12-78); ALBUMIN 3.5 g/dL (3.4-5.0); ALKALINE PHOSPHATASE 87 U/L (46-116); ASPARTATE AMINOTRANSFERASE 67 U/L (15-37); BILIRUBIN,TOTAL 0.4 mg/dL (0.1-1.0); TOTAL PROTEIN, SERUM 6.7 g/dL (6.4-8.2)
[2017-04-25 17:01] VITALS: BP 126/62
[2017-04-25] MEDS ORDERED: PNEUMOCOCCAL VACCINE POLYVALENT 0.5 ML VIAL [PPSV23] IM ONE (17:45)
[2017-04-25] MEDS ORDERED: INFLUENZA VIRUS VACCINE QVS 2017-18 (3YR+)/PF 60 MCG/0.5 ML SYRINGE IM ONE (17:45)
[2017-04-26 05:56] VITALS: BP 122/79
[2017-04-26 08:31] VITALS: BP 110/65
[2017-04-26] MEDS ORDERED: MAG HYDROX/AL HYDROX/SIMETH ES 30 ML SUSPENSION UDCUP PO PRN (08:45)
[2017-04-26] MEDS ORDERED: BENZOCAINE/MENTHOL LOZENGE MM PRN (08:45)
[2017-04-26] MEDS ORDERED: PETROLATUM,WHITE 71 GM JELLY TP PRN (08:45)
[2017-04-26] MEDS ORDERED: CloNIDine HCL 0.1 MG TABLET PO PRN (08:45)
[2017-04-26] MEDS ORDERED: ONDANSETRON HCL 4 MG TABLET PO PRN (08:45)
[2017-04-26] MEDS ORDERED: LOPERAMIDE HCL 2 MG CAPSULE PO PRN (08:45)
[2017-04-26] MEDS ORDERED: BACITRACIN 28.4 GM OINTMENT TP PRN (08:45)
[2017-04-26] MEDS ORDERED: MAGNESIUM HYDROXIDE SUSPENSION 30 ML UDCUP PO PRN (08:45)
[2017-04-26] MEDS ORDERED: ACETAMINOPHEN 325 MG TABLET PO PRN (08:45)
[2017-04-26] MEDS ORDERED: ALBUTEROL SULFATE HFA 90 MCG/PUFF 8 GM INHALER IH PRN (08:45)
[2017-04-26] MEDS ORDERED: IBUPROFEN 600 MG TABLET PO PRN (08:45)
[2017-04-26] MEDS: CHOLECALCIFEROL (VIT D3) 1,000 UNITS TABLET PO SCH ×2 (08:56→09:00)
[2017-04-26] MEDS: NICOTINE 21 MG/24 HOUR PATCH TD SCH ×2 (08:56→09:00)
[2017-04-26] MEDS: BACITRACIN 28.4 GM OINTMENT TP SCH ×3 (08:56→17:01)
[2017-04-26] MEDS: ARIPiprazole 15 MG TABLET PO SCH ×2 (08:56→09:00)
[2017-04-26 16:19] VITALS: BP 125/70
[2017-04-27 05:55] VITALS: BP 123/73
[2017-04-27 08:15] VITALS: BP 129/62
[2017-04-27] MEDS: ARIPiprazole 15 MG TABLET PO SCH (09:00)
[2017-04-27] MEDS: BACITRACIN 28.4 GM OINTMENT TP SCH ×2 (09:00→16:39)
[2017-04-27] MEDS ORDERED: ARIPiprazole LAUROXIL ER SUSPENSION 882 MG/3.2 ML SYRINGE IM ONE (09:00)
[2017-04-27] MEDS: NICOTINE 21 MG/24 HOUR PATCH TD SCH (09:00)
[2017-04-27] MEDS: CHOLECALCIFEROL (VIT D3) 1,000 UNITS TABLET PO SCH (09:00)
[2017-04-27] MEDS: LORazepam 2 MG TABLET PO PRN ×2 (10:37→16:39)
[2017-04-27] MEDS: HALOPERIDOL 5 MG TABLET PO PRN (10:37)
[2017-04-27 16:13] VITALS: BP 110/61
[2017-04-27] MEDS: ZOLPIDEM TARTRATE 10 MG TABLET PO PRN (20:54)
[2017-04-28 05:54] VITALS: BP 115/70
[2017-04-28] MEDS: CHOLECALCIFEROL (VIT D3) 1,000 UNITS TABLET PO SCH (08:27)
[2017-04-28] MEDS: NICOTINE 21 MG/24 HOUR PATCH TD SCH (08:28)
[2017-04-28] MEDS: BACITRACIN 28.4 GM OINTMENT TP SCH ×2 (08:29→16:24)
[2017-04-28 08:30] VITALS: BP 115/68
[2017-04-28] MEDS: ARIPiprazole 15 MG TABLET PO SCH (08:33)
[2017-04-28] MEDS: HALOPERIDOL LACTATE 5 MG/ML VIAL IM PRN (08:39)
[2017-04-28] MEDS ORDERED: NICOTINE 21 MG/24 HOUR PATCH TD SCH (09:00)
[2017-04-28 09:16] LABS: FREE T4 (FREE THYROXINE) 1.01 ng/dL (0.76-1.46); THYROID STIMULATING HORMONE 1.73 uIU/mL (0.36-3.74)
[2017-04-28 16:03] VITALS: BP 120/62
[2017-04-29 00:45] VITALS: BP 119/91
[2017-04-29 08:03] VITALS: BP 112/64
[2017-04-29] MEDS: CHOLECALCIFEROL (VIT D3) 1,000 UNITS TABLET PO SCH (09:00)
[2017-04-29] MEDS: BACITRACIN 28.4 GM OINTMENT TP SCH ×2 (09:00→16:47)
[2017-04-29] MEDS: ARIPiprazole 15 MG TABLET PO SCH (09:00)
[2017-04-29] MEDS: NICOTINE 21 MG/24 HOUR PATCH TD SCH (09:48)
[2017-04-29] MEDS: HALOPERIDOL LACTATE 5 MG/ML VIAL IM PRN (09:55)
[2017-04-29 16:01] VITALS: BP 124/72
[2017-04-29] MEDS: LORazepam 2 MG TABLET PO PRN (16:46)
[2017-04-29] MEDS: ZOLPIDEM TARTRATE 10 MG TABLET PO PRN (20:32)
[2017-04-30 06:27] VITALS: BP 109/65
[2017-04-30 08:02] VITALS: BP 126/64
[2017-04-30] MEDS: CHOLECALCIFEROL (VIT D3) 1,000 UNITS TABLET PO SCH (09:00)
[2017-04-30] MEDS: ARIPiprazole 15 MG TABLET PO SCH (09:00)
[2017-04-30] MEDS: NICOTINE 21 MG/24 HOUR PATCH TD SCH (09:00)
[2017-04-30] MEDS: BACITRACIN 28.4 GM OINTMENT TP SCH ×2 (09:00→17:09)
[2017-04-30] MEDS: HALOPERIDOL LACTATE 5 MG/ML VIAL IM PRN (09:00)
[2017-04-30 16:00] VITALS: BP 119/71
[2017-05-01 06:56] VITALS: BP 121/72
[2017-05-01 08:25] VITALS: BP 110/72
[2017-05-01] MEDS: ARIPiprazole 15 MG TABLET PO SCH (08:55)
[2017-05-01] MEDS: CHOLECALCIFEROL (VIT D3) 1,000 UNITS TABLET PO SCH (08:55)
[2017-05-01] MEDS: BACITRACIN 28.4 GM OINTMENT TP SCH ×2 (08:56→16:49)
[2017-05-01] MEDS: NICOTINE 21 MG/24 HOUR PATCH TD SCH (08:56)
[2017-05-01] MEDS: HALOPERIDOL LACTATE 5 MG/ML VIAL IM PRN (09:23)
[2017-05-01 16:00] VITALS: BP 122/66
[2017-05-02 05:45] VITALS: BP 118/82
[2017-05-02 08:00] VITALS: BP 133/65
[2017-05-02] MEDS: CHOLECALCIFEROL (VIT D3) 1,000 UNITS TABLET PO SCH (08:06)
[2017-05-02] MEDS: NICOTINE 21 MG/24 HOUR PATCH TD SCH (08:06)
[2017-05-02] MEDS: ARIPiprazole 15 MG TABLET PO SCH (08:06)
[2017-05-02] MEDS: BACITRACIN 28.4 GM OINTMENT TP SCH ×2 (08:07→16:19)
[2017-05-02] MEDS: HALOPERIDOL LACTATE 5 MG/ML VIAL IM PRN (08:08)
[2017-05-02 16:22] VITALS: BP 116/61
[2017-05-03 00:09] VITALS: BP 115/72
[2017-05-03 08:00] VITALS: BP 123/80
[2017-05-03] MEDS: NICOTINE 21 MG/24 HOUR PATCH TD SCH ×2 (08:04→08:46)
[2017-05-03] MEDS: HALOPERIDOL 5 MG TABLET PO PRN (08:04)
[2017-05-03] MEDS: LORazepam 2 MG TABLET PO PRN (08:04)
[2017-05-03] MEDS: ARIPiprazole 15 MG TABLET PO SCH ×2 (08:04→08:45)
[2017-05-03] MEDS: BACITRACIN 28.4 GM OINTMENT TP SCH ×3 (08:04→16:44)
[2017-05-03] MEDS: CHOLECALCIFEROL (VIT D3) 1,000 UNITS TABLET PO SCH ×2 (08:04→08:46)
[2017-05-03] MEDS: HALOPERIDOL LACTATE 5 MG/ML VIAL IM PRN (09:04)
[2017-05-03 16:01] VITALS: BP 127/69
[2017-05-04 02:01] VITALS: BP 122/71
[2017-05-04 08:01] VITALS: BP 126/84
[2017-05-04] MEDS: ARIPiprazole 15 MG TABLET PO SCH (09:00)
[2017-05-04] MEDS: CHOLECALCIFEROL (VIT D3) 1,000 UNITS TABLET PO SCH (09:19)
[2017-05-04] MEDS: BACITRACIN 28.4 GM OINTMENT TP SCH ×2 (09:21→16:36)
[2017-05-04] MEDS: NICOTINE 21 MG/24 HOUR PATCH TD SCH (09:21)
[2017-05-04] MEDS: HALOPERIDOL LACTATE 5 MG/ML VIAL IM PRN (11:06)
[2017-05-04 16:00] VITALS: BP 117/66
[2017-05-05 02:25] VITALS: BP 118/73
[2017-05-05 08:01] VITALS: BP 112/62
[2017-05-05] MEDS: CHOLECALCIFEROL (VIT D3) 1,000 UNITS TABLET PO SCH (08:52)
[2017-05-05] MEDS: BACITRACIN 28.4 GM OINTMENT TP SCH ×2 (08:53→16:24)
[2017-05-05] MEDS: NICOTINE 21 MG/24 HOUR PATCH TD SCH (08:53)
[2017-05-05] MEDS: ARIPiprazole 15 MG TABLET PO SCH (08:54)
[2017-05-05] MEDS: HALOPERIDOL LACTATE 5 MG/ML VIAL IM PRN (10:14)
[2017-05-05 16:00] VITALS: BP 114/67
[2017-05-06 04:41] VITALS: BP 115/64
[2017-05-06 08:02] VITALS: BP 116/60
[2017-05-06] MEDS: NICOTINE 21 MG/24 HOUR PATCH TD SCH (08:15)
[2017-05-06] MEDS: CHOLECALCIFEROL (VIT D3) 1,000 UNITS TABLET PO SCH (08:15)
[2017-05-06] MEDS: HALOPERIDOL LACTATE 5 MG/ML VIAL IM PRN (08:18)
[2017-05-06] MEDS: ARIPiprazole 15 MG TABLET PO SCH (09:00)
[2017-05-06 16:00] VITALS: BP 128/68
[2017-05-07 01:44] VITALS: BP 122/69
[2017-05-07 08:00] VITALS: BP 127/68
[2017-05-07] MEDS: NICOTINE 21 MG/24 HOUR PATCH TD SCH (08:20)
[2017-05-07] MEDS: CHOLECALCIFEROL (VIT D3) 1,000 UNITS TABLET PO SCH (08:20)
[2017-05-07] MEDS: ARIPiprazole 15 MG TABLET PO SCH (09:00)
[2017-05-07 16:00] VITALS: BP 127/69
[2017-05-07] MEDS: LORazepam 2 MG TABLET PO PRN (19:17)
[2017-05-08 06:02] VITALS: BP 113/68
[2017-05-08 08:01] VITALS: BP 112/76
[2017-05-08] MEDS: NICOTINE 21 MG/24 HOUR PATCH TD SCH (09:52)
[2017-05-08] MEDS: ARIPiprazole 15 MG TABLET PO SCH (09:52)
[2017-05-08] MEDS: CHOLECALCIFEROL (VIT D3) 1,000 UNITS TABLET PO SCH (09:52)
[2017-05-08] MEDS: LORazepam 2 MG TABLET PO PRN (11:25)
== END 2017-05-08 13:00 | disposition home or self-care (01) | DRG 750 ==
LOC: EMS 11:39 → B3A 14:26
PROVIDERS: ADMIT Psychiatry & Neurology Psychiatry; ATTEND Psychiatry & Neurology Psychiatry
PROC: 3E0234Z Introduction of Serum, Toxoid and Vaccine into Muscle, Percutaneous Approach (ICD-10-PCS; principal; 2017-04-25)
DX: F20.0 Paranoid schizophrenia (principal); R45.850 Homicidal ideations; R45.851 Suicidal ideations; I10 Essential (primary) hypertension; E55.9 Vitamin D deficiency, unspecified; F17.200 Nicotine dependence, unspecified, uncomplicated; G47.00 Insomnia, unspecified; K59.00 Constipation, unspecified; F29 Unspecified psychosis not due to a substance or known physiological condition; F41.9 Anxiety disorder, unspecified; Z79.899 Other long term (current) drug therapy; Z90.49 Acquired absence of other specified parts of digestive tract; Z23 Encounter for immunization
CPT/HCPCS: 84439; 84443; 96372; 99285; G0480; J1200; J1630; J2060; J3535

== ENCOUNTER 2017-05-09 14:31 | Inpatient (IN) | payer MEDICAID ==
[~2017-05-09] VITALS: Ht 188 cm; Wt 87.5 kg
[~2017-05-09 14:31] MED LIST changes: -BENZ2TAB10 PO; -VITAD1000 PO
[2017-05-09 15:07] VITALS: BP 128/82
[2017-05-09] MEDS ORDERED: INFLUENZA VIRUS VACCINE QVS 2017-18 (3YR+)/PF 60 MCG/0.5 ML SYRINGE IM ONE (15:30)
[2017-05-09] MEDS ORDERED: HALOPERIDOL 5 MG TABLET PO PRN (16:00)
[2017-05-09] MEDS ORDERED: ZOLPIDEM TARTRATE 10 MG TABLET PO PRN (16:00)
[2017-05-09 16:26] VITALS: BP 131/66
[2017-05-09] MEDS: LORazepam 2 MG TABLET PO PRN (17:38)
[2017-05-09] MEDS ORDERED: FluPHENAZine HCL 2.5 MG/ML INJ IM PRN (18:00)
[2017-05-10 05:48] VITALS: BP 128/70
[2017-05-10 08:05] LABS: BASOPHILS % (AUTO) 0.3 % (0.0-2.0); EOSINOPHILS % (AUTO) 1.5 % (1.0-6.0); HEMOGLOBIN 14.4 g/dL (13.5-17.5); LYMPHOCYTES # (AUTO) 2.8 K/uL (1.0-4.8); LYMPHOCYTES % (AUTO) 31.3 % (22.0-44.0); MEAN CORPUSCULAR HEMOGLOBIN 31.1 pg (26.0-34.0); MEAN CORPUSCULAR HGB CONC 33.4 G/dL (31.0-37.0); MEAN CORPUSCULAR VOLUME 93 fL (80-100); MONOCYTES # (AUTO) 0.6 K/uL (0.1-1.0); NEUTROPHILS # (AUTO) 5.3 K/uL (1.8-7.7); NEUTROPHILS % (AUTO) 59.9 % (40.0-70.0); PLATELET COUNT (AUTO) 329 K/uL (150-450); RED BLOOD CELL COUNT(AUTO) 4.62 MIL/uL (4.50-5.90); RED CELL DISTRIBUTION WIDTH 16.9 % (11.5-14.5)
[2017-05-10 08:26] VITALS: BP 132/71
[2017-05-10 08:33] LABS: ALANINE AMINOTRANSFERASE 151 U/L (12-78); ALBUMIN 3.5 g/dL (3.4-5.0); ALKALINE PHOSPHATASE 135 U/L (46-116); ANION GAP 5 mmol/L (8-16); ASPARTATE AMINOTRANSFERASE 73 U/L (15-37); BILIRUBIN,TOTAL 0.2 mg/dL (0.1-1.0); CALCIUM, TOTAL 8.6 mg/dL (8.8-10.5); CARBON DIOXIDE 30 mmol/L (22-29); CHLORIDE 104 mmol/L (98-107); CHOL/HDL RATIO 2.4 (4.2-7.3); CHOLESTEROL 145 mg/dL (131-200); CREATININE 0.73 mg/dL (0.60-1.30); FREE T4 (FREE THYROXINE) 0.76 ng/dL (0.76-1.46); GLOMERULAR FILTR. RATE CALC > 60 mL/min (>60); GLUCOSE,RANDOM 98 mg/dL (70-110); HDL CHOLESTEROL 60 mg/dL (40-60); LDL CHOL (CALC.) 74 mg/dL (0-130); POTASSIUM 4.8 mmol/L (3.5-5.1); SODIUM SERUM 139 mmol/L (136-145); THYROID STIMULATING HORMONE 2.09 uIU/mL (0.36-3.74); TOTAL PROTEIN, SERUM 6.7 g/dL (6.4-8.2); TRIGLYCERIDES 53 mg/dL (15-150); UREA NITROGEN, BLOOD 20 mg/dL (7-18)
[2017-05-10 08:47] LABS: HEMOGLOBIN A1C 5.6 % (4.5-6.2)
[2017-05-10] MEDS: FluPHENAZine HCL 10 MG TABLET PO SCH ×2 (09:00→16:57)
[2017-05-10] MEDS ORDERED: BENZOCAINE/MENTHOL LOZENGE MM PRN (09:15)
[2017-05-10] MEDS ORDERED: MAGNESIUM HYDROXIDE SUSPENSION 30 ML UDCUP PO PRN (09:15)
[2017-05-10] MEDS ORDERED: MAG HYDROX/AL HYDROX/SIMETH ES 30 ML SUSPENSION UDCUP PO PRN (09:15)
[2017-05-10] MEDS ORDERED: ALBUTEROL SULFATE HFA 90 MCG/PUFF 8 GM INHALER IH PRN (09:15)
[2017-05-10] MEDS ORDERED: ACETAMINOPHEN 325 MG TABLET PO PRN (09:15)
[2017-05-10] MEDS ORDERED: ONDANSETRON HCL 4 MG TABLET PO PRN (09:15)
[2017-05-10] MEDS ORDERED: CloNIDine HCL 0.1 MG TABLET PO PRN (09:15)
[2017-05-10] MEDS ORDERED: PETROLATUM,WHITE 71 GM JELLY TP PRN (09:15)
[2017-05-10] MEDS ORDERED: BACITRACIN 28.4 GM OINTMENT TP PRN (09:15)
[2017-05-10] MEDS ORDERED: IBUPROFEN 600 MG TABLET PO PRN (09:15)
[2017-05-10] MEDS ORDERED: LOPERAMIDE HCL 2 MG CAPSULE PO PRN (09:15)
[2017-05-10] MEDS: NICOTINE 21 MG/24 HOUR PATCH TD SCH (09:55)
[2017-05-10] MEDS: CHOLECALCIFEROL (VIT D3) 1,000 UNITS TABLET PO SCH (09:55)
[2017-05-10] MEDS: LORazepam 2 MG TABLET PO PRN (12:03)
[2017-05-10 16:35] VITALS: BP 134/64
[2017-05-10] MEDS ORDERED: INFLUENZA VIRUS VACCINE QVS 2017-18 (3YR+)/PF 60 MCG/0.5 ML SYRINGE IM ONE (22:00)
[2017-05-11 00:19] VITALS: BP 112/69
[2017-05-11 08:11] VITALS: BP 121/68
[2017-05-11] MEDS: CHOLECALCIFEROL (VIT D3) 1,000 UNITS TABLET PO SCH ×2 (09:00→09:22)
[2017-05-11] MEDS: FluPHENAZine HCL 10 MG TABLET PO SCH ×3 (09:00→17:34)
[2017-05-11] MEDS: NICOTINE 21 MG/24 HOUR PATCH TD SCH (09:21)
[2017-05-11 16:13] VITALS: BP 118/67
[2017-05-11] MEDS: LORazepam 2 MG TABLET PO PRN (17:34)
[2017-05-11] MEDS: MUPIROCIN CALCIUM 2% 22 GM OINTMENT NASAL SCH (17:34)
[2017-05-12 05:40] VITALS: BP 115/73
[2017-05-12 08:28] VITALS: BP 115/60
[2017-05-12] MEDS: MUPIROCIN CALCIUM 2% 22 GM OINTMENT NASAL SCH ×2 (09:36→17:09)
[2017-05-12] MEDS: LORazepam 2 MG TABLET PO PRN ×2 (09:37→17:09)
[2017-05-12] MEDS: FluPHENAZine HCL 10 MG TABLET PO SCH ×2 (09:37→17:09)
[2017-05-12] MEDS: NICOTINE 21 MG/24 HOUR PATCH TD SCH (09:37)
[2017-05-12] MEDS: CHOLECALCIFEROL (VIT D3) 1,000 UNITS TABLET PO SCH (09:37)
[2017-05-12 16:00] VITALS: BP 108/60
[2017-05-13 06:39] VITALS: BP 105/62
[2017-05-13 08:28] VITALS: BP 122/74
[2017-05-13 08:38] LABS: AMPHET/METH SCREEN,URINE NEGATIVE (NEGATIVE); BARBITURATE SCREEN, URINE NEGATIVE (NEGATIVE); BENZODIAZEPINES SCREEN,URINE NEGATIVE (NEGATIVE); CANNABINOID SCREEN,URINE NEGATIVE (NEGATIVE); COCAINE SCREEN,URINE NEGATIVE (NEGATIVE); METHADONE SCREEN, URINE NEGATIVE (NEGATIVE); OPIATE SCREEN,URINE NEGATIVE (NEGATIVE)
[2017-05-13 08:41] LABS: PHENCYCLIDINE SCREEN,URINE NEGATIVE (NEGATIVE)
[2017-05-13 09:03] LABS: APPEARANCE,URINE CLEAR (CLEAR); BILIRUBIN,URINE NEGATIVE (NEGATIVE); GLUCOSE, URINE (UA) NEGATIVE (NEGATIVE); KETONES,URINE NEGATIVE (NEGATIVE); LEUKOCYTE ESTERASE ,URINE NEGATIVE (NEGATIVE); NITRATE,URINE NEGATIVE (NEGATIVE); OCCULT BLOOD,URINE NEGATIVE (NEGATIVE); PH,URINE 6.5 (5.0-8.0); PROTEIN,URINE NEGATIVE (NEGATIVE); UROBILINOGEN,URINE 0.2 mg/dL (<=1.0)
[2017-05-13] MEDS: MUPIROCIN CALCIUM 2% 22 GM OINTMENT NASAL SCH ×2 (09:06→17:32)
[2017-05-13] MEDS: NICOTINE 21 MG/24 HOUR PATCH TD SCH (09:06)
[2017-05-13] MEDS: CHOLECALCIFEROL (VIT D3) 1,000 UNITS TABLET PO SCH (09:06)
[2017-05-13] MEDS: FluPHENAZine HCL 10 MG TABLET PO SCH ×2 (09:06→17:32)
[2017-05-13 16:00] VITALS: BP 129/75
[2017-05-13] MEDS: LORazepam 2 MG TABLET PO PRN (17:33)
[2017-05-14 04:41] VITALS: BP 111/73
[2017-05-14 08:42] VITALS: BP 121/78
[2017-05-14] MEDS: FluPHENAZine HCL 10 MG TABLET PO SCH (09:35)
[2017-05-14] MEDS: CHOLECALCIFEROL (VIT D3) 1,000 UNITS TABLET PO SCH (09:35)
[2017-05-14] MEDS: NICOTINE 21 MG/24 HOUR PATCH TD SCH (09:35)
[2017-05-14] MEDS: MUPIROCIN CALCIUM 2% 22 GM OINTMENT NASAL SCH (09:35)
[2017-05-14] MEDS ORDERED: VITAD1000 PO (16:07)
[2017-05-14] MEDS ORDERED: FLUP10 PO (16:07)
[2017-05-14] MEDS ORDERED: MUPI1OIN4 NS (16:08)
== END 2017-05-14 16:29 | disposition home or self-care (01) | DRG 750 ==
LOC: B3A 15:56
PROVIDERS: ADMIT Psychiatry & Neurology Psychiatry; ATTEND Psychiatry & Neurology Psychiatry
DX: F20.0 Paranoid schizophrenia (principal); I10 Essential (primary) hypertension; R45.87 Impulsiveness; E55.9 Vitamin D deficiency, unspecified; F41.9 Anxiety disorder, unspecified; G47.00 Insomnia, unspecified; Z90.49 Acquired absence of other specified parts of digestive tract; Z56.0 Unemployment, unspecified; F17.200 Nicotine dependence, unspecified, uncomplicated; Z71.6 Tobacco abuse counseling; Z22.322 Carrier or suspected carrier of Methicillin resistant Staphylococcus aureus; Z79.899 Other long term (current) drug therapy
CPT/HCPCS: 80074; 80307; 82306; 83036; 84439; 84443; 87081; 90471; J3490